=== PATIENT | female | born 1965 | race African-American/Black ===

== ENCOUNTER 2019-05-28 11:30 | Inpatient (IN) | payer OTHER ==
[2019-05-28 12:44] VITALS: BMI 21.1
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
[2019-05-28] MEDS ORDERED: MENTHOL/PHENOL 1 EACH UD MM PRN (13:40)
[2019-05-28] MEDS ORDERED: IBUPROFEN 400 MG TABLET (FP) PO PRN (13:40)
[2019-05-28] MEDS ORDERED: guaiFENesin 200 MG/10 ML 10 ML UNIT-DOSE CUPS PO PRN (13:40)
[2019-05-28] MEDS ORDERED: MAGNESIUM HYDROX 2400MG/30ML ORAL SUSPENSION 30 ML CUP PO PRN (13:40)
[2019-05-28] MEDS ORDERED: P-EPHED 60MG/TRIPROLIDI 2.5MG TABLET PO PRN (13:40)
[2019-05-28] MEDS ORDERED: LOPERAMIDE HCL 2 MG CAPSULE PO PRN (13:40)
[2019-05-28] MEDS ORDERED: NICOTINE POLACRILEX 2 MG GUM BUC PRN (13:40)
[2019-05-28] MEDS ORDERED: MAGNESIUM CITRATE 300 ML BOTTLE PO PRN (13:40)
[2019-05-28] MEDS ORDERED: ACETAMINOPHEN 325 MG TABLET (FP) PO PRN (13:40)
[2019-05-28] MEDS ORDERED: MAG HYDROX/AL HYDROX/SIMETH 30 ML UNIT-DOSE CUP PO PRN (13:40)
--- NOTE | 2019-05-28 13:51 | PN ---
Teaching Attending Note Name of Resident: Francoise Baron ATTENDING PHYSICIAN STATEMENT I saw and evaluated the patient. I reviewed the resident's note and discussed the case with the resident. I agree with the resident's findings and plan as documented. SUBJECTIVE: Agree with resident's subjective findings OBJECTIVE: Agree with resident's objective findings. ASSESSMENT AND PLAN: Agree with admission for rehabilitation. Dr. Hillman
[2019-05-28] MEDS ORDERED: ALBUTEROL SO4 8 GM HFA INHALER IH PRN (14:06)
[2019-05-28] MEDS ORDERED: FLUCONAZOLE 150 MG TABLET PO ONE (15:00)
[2019-05-28] MEDS ORDERED: PT OWN MED DRAWER 7, Y5N ONE (15:08)
[2019-05-28] MEDS ORDERED: NICOTINE 21 MG/24 HOURS TOPICAL PATCH TD SCH (15:45)
[2019-05-28] MEDS ORDERED: ASPIRIN COATED 81 MG TABLET.EC PO SCH (16:30)
[2019-05-28 16:31] LABS: HEMATOCRIT 37.1 % (32.4-45.2); HEMOGLOBIN 11.9 GM/dL (10.7-15.3); MCH 27.9 pg (25.7-33.7); MEAN PLT VOLUME 10.3 fl (7.5-11.1); PLATELET COUNT 183 K/MM3 (134-434); RBC 4.27 M/mm3 (3.60-5.2)
[2019-05-28 16:37] LABS: ALBUMIN 2.6 g/dl (3.4-5.0); BILIRUBIN,TOTAL 0.2 mg/dL (0.2-1); BLOOD UREA NITROGEN 14.5 mg/dL (7-18); CREATININE 0.7 mg/dL (0.55-1.3); POTASSIUM 3.6 mmol/L (3.5-5.1); TOT PROT 9.3 g/dl (6.4-8.2)
[2019-05-28 16:43] LABS: WHITE BLOOD COUNT 1.8 K/mm3 (4.0-10.0)
[2019-05-28] MEDS: ACYCLOVIR 400 MG TABLET PO SCH ×2 (17:25→21:57)
--- NOTE | 2019-05-28 17:50 | PN ---
[facility] Progress Note Note: Patient w/ hx HIV+ and low WBC's for many years. CBC WBC 1.8 K/mm3 (4.0-10.0) L* 05/28/19 14:25 RBC 4.27 M/mm3 (3.60-5.2) 05/28/19 14:25 Hgb 11.9 GM/dL (10.7-15.3) 05/28/19 14:25 Hct 37.1 % (32.4-45.2) 05/28/19 14:25 MCV 87.0 fl (80-96) 05/28/19 14:25 MCH 27.9 pg (25.7-33.7) 05/28/19 14:25 MCHC 32.0 g/dl (32.0-36.0) 05/28/19 14:25 RDW 15.0 % (11.6-15.6) 05/28/19 14:25 Plt Count 183 K/MM3 (134-434) D 05/28/19 14:25 MPV 10.3 fl (7.5-11.1) 05/28/19 14:25 Patient is non-compliant w/ HIV meds > 1 month. Patient encouraged to f/u w/ HCP , upon discharge, to evaluate appropriate medication management.
[2019-05-28] MEDS ORDERED: THIAMINE HCL 100 MG TABLET (FP) PO SCH (22:00)
[2019-05-28] MEDS ORDERED: MELATONIN 5 MG TABLETS PO PRN (22:00)
--- NOTE | 2019-05-29 06:10 | DS ---
[facility] Rehab Discharge Summary - [facility] Rehab Discharge Summary Admission Date: 05/28/19 Discharge Date: 05/29/19 - History Present History: Alcohol dependence, Cocaine dependence, Opioid dependence Additional Comments: Patient admitted for rehab, after [address] [facility] detox w/ hx alcohol, heroin and cocaine use disorder. Pertinent Past History: PMHx: HIV+ ; Depression Pt came in from [facility] where received detox and psych evaluation. . Last HIV medication use 1 month ago - Discharge Physical Exam Vital Signs: Vital Signs Temperature 100.0 F H 05/28/19 13:45 Pulse Rate 75 05/28/19 14:37 Respiratory Rate 16 05/29/19 00:30 Blood Pressure 98/75 05/28/19 14:37 O2 Sat by Pulse Oximetry (%) Pertinent Admission Physical Exam Findings: Patient w/ early alcohol, heroin and cocaine remission. Laboratory Last Values WBC 1.8 K/mm3 (4.0-10.0) L* 05/28/19 14:25 RBC 4.27 M/mm3 (3.60-5.2) 05/28/19 14:25 Hgb 11.9 GM/dL (10.7-15.3) 05/28/19 14:25 Hct 37.1 % (32.4-45.2) 05/28/19 14:25 MCV 87.0 fl (80-96) 05/28/19 14:25 MCH 27.9 pg (25.7-33.7) 05/28/19 14:25 MCHC 32.0 g/dl (32.0-36.0) 05/28/19 14:25 RDW 15.0 % (11.6-15.6) 05/28/19 14:25 Plt Count 183 K/MM3 (134-434) D 05/28/19 14:25 MPV 10.3 fl (7.5-11.1) 05/28/19 14:25 Sodium 138 mmol/L (136-145) 05/28/19 14:25 Potassium 3.6 mmol/L (3.5-5.1) 05/28/19 14:25 Chloride 107 mmol/L (98-107) 05/28/19 14:25 Carbon Dioxide 25 mmol/L (21-32) 05/28/19 14:25 Anion Gap 6 MMOL/L (8-16) L 05/28/19 14:25 BUN 14.5 mg/dL (7-18) 05/28/19 14:25 Creatinine 0.7 mg/dL (0.55-1.3) 05/28/19 14:25 Est GFR (CKD-EPI)AfAm 114.65 05/28/19 14:25 Est GFR (CKD-EPI)NonAf 98.92 05/28/19 14:25 Random Glucose 92 mg/dL (74-106) 05/28/19 14:25 Calcium 9.0 mg/dL (8.5-10.1) 05/28/19 14:25 Total Bilirubin 0.2 mg/dL (0.2-1) 05/28/19 14:25 AST 87 U/L (15-37) H 05/28/19 14:25 ALT 64 U/L (13-61) H 05/28/19 14:25 Alkaline Phosphatase 67 U/L (45-117) 05/28/19 14:25 Total Protein 9.3 g/dl (6.4-8.2) H 05/28/19 14:25 Albumin 2.6 g/dl (3.4-5.0) L 05/28/19 14:25 Labs reviewed and discussed w/ patient. Patient w/ a history of leukopenia dating back to 2013. - Treatment Discharge Condition: Discharge condition good - Medication Discharge Medications: Ambulatory Orders Albuterol Sulfate Inhaler - [Ventolin HFA Inhaler -] 2 puff IH Q4H PRN #1 inhaler 05/01/15 Aspirin [ASA -] 81 mg PO DAILY 05/28/19 Bictegrav/Emtricit/Tenofov Ala [Biktarvy 50-200-25 mg Tablet] 1 each PO DAILY Cetirizine HCl [Zyrtec -] 10 mg PO DAILY 05/28/19 Divalproex *ER* [Depakote *ER* -] 500 mg PO DAILY 05/28/19 Docusate Sodium [Colace -] 100 mg PO DAILY 05/28/19 Fluconazole [Diflucan] 150 mg PO ONCE 05/28/19 Fluticasone Propionate [Flovent Diskus] 50 mcg IH DAILY 05/28/19 Halobetasol Prop 0.05% Tp Crm [Ultravate (Nf)] 1 applic TP DAILY 05/28/19 Multivitamins [Tab-A-Vit -] 1 tab PO DAILY 05/28/19 Ranitidine HCl 150 mg PO DAILY 05/28/19 Sulfamethoxazole/Trimethoprim [Bactrim Ds -] 1 tab PO DAILY 05/28/19 Valacyclovir HCl [Valtrex] 1,000 mg PO DAILY 05/28/19 - Medication-Assisted Treatment (MAT) Medication-Assisted Treatment (MAT): No - Discharge Instructions Diet, activity, other medical instructions: Diet: Regular Activity: Ad chong Other medical instructions: Patient encouraged to f/u w/ HCP. Discussed and given copy of lab work. Smoking cessation encouraged. Patient declined nicotine patch or gum. - Diagnosis (1) Alcohol use disorder, moderate, in early remission Status: Acute (2) Heroin use disorder, moderate, in early remission Status: Acute (3) Cocaine use disorder, moderate, in early remission Status: Acute (4) Leukopenia Status: Chronic Qualifiers: Leukopenia type: unspecified Qualified Code(s): D72.819 - Decreased white blood cell count, unspecified (5) HIV (human immunodeficiency virus infection) Status: Chronic Qualifiers: HIV symptom status: unspecified Qualified Code(s): B20 - Human immunodeficiency virus [HIV] disease (6) Nicotine dependence Status: Chronic Qualifiers: Nicotine product type: cigarettes Substance use status: uncomplicated Qualified Code(s): F17.210 - Nicotine dependence, cigarettes, uncomplicated - Follow-up Referral Minutes to complete discharge: 20 - AMA Did Patient Leave Against Medical Advice: Yes
--- NOTE | 2019-05-29 06:16 | PN ---
[facility] Progress Note Note: Patient insisting on leaving despite encouragement to stay. Alert and oriented. Gait steady. Vital Signs - 24 hr 05/28/19 05/28/19 05/28/19 12:12 13:45 14:37 Temperature 100.0 F H 100.0 F H Pulse Rate 77 77 75 Respiratory 18 18 Rate Blood Pressure 86/56 L 86/56 L 98/75 05/29/19 05/29/19 05/29/19 00:30 03:30 06:15 Temperature 98.0 F Pulse Rate 74 Respiratory 16 16 18 Rate Blood Pressure 93/57 L Given copy of labs and encouraged f/u w/ PCP.
[2019-05-29 07:04] VITALS: BP 93/57; PULSE 74; TEMP 98
[2019-05-29] MEDS ORDERED: ASPIRIN 81 MG CHEWABLE TABLETS PO SCH (10:00)
[2019-05-29] MEDS ORDERED: PATIENT'S OWN MEDICATION (NON-FORMULARY) (Ranitidine Hcl [Ranitidine Hcl] 150 MG) PO SCH (10:00)
[2019-05-29] MEDS ORDERED: MULTIVITAMINS (DAILY MVI) TABLET (FP) PO SCH (10:00)
[2019-05-29] MEDS ORDERED: LORATADINE 10 MG TABLET PO SCH (10:00)
[2019-05-29] MEDS ORDERED: SULFAMETHOXAZOLE/TRIMETHOPRIM 800MG/160MG D.S. TABLET PO SCH (10:00)
[2019-05-29] MEDS ORDERED: PATIENT'S OWN MEDICATION (NON-FORMULARY) (Fluticasone Propionate [Flovent Diskus] 50 MCG) IH SCH (10:00)
[2019-05-29] MEDS ORDERED: PRENATAL VITAMINS W/ FOLIC ACID TABLET (FP) PO SCH (10:00)
[2019-05-29] MEDS ORDERED: DOCUSATE SODIUM 100 MG CAPSULE (FP) PO SCH (10:00)
== END 2019-05-29 06:25 | disposition left against medical advice (07) | DRG 770 ==
LOC: YASAS 11:30 → Y3E 14:37
PROVIDERS: ADMIT Neuromusculoskeletal Medicine & OMM; ATTEND Neuromusculoskeletal Medicine & OMM
PROC: HZ2ZZZZ Detoxification Services for Substance Abuse Treatment (ICD-10-PCS; principal; 2019-05-28)
DX: F10.20 Alcohol dependence, uncomplicated (principal); F11.20 Opioid dependence, uncomplicated; F14.20 Cocaine dependence, uncomplicated; F17.210 Nicotine dependence, cigarettes, uncomplicated; F31.9 Bipolar disorder, unspecified; Z21 Asymptomatic human immunodeficiency virus [HIV] infection status; D72.819 Decreased white blood cell count, unspecified; I69.898 Other sequelae of other cerebrovascular disease; H53.8 Other visual disturbances; Z86.19 Personal history of other infectious and parasitic diseases; Z85.41 Personal history of malignant neoplasm of cervix uteri
CPT/HCPCS: 36415; 80053; 85027; 86593

== ENCOUNTER 2019-07-23 17:13 | Inpatient (IN) | payer OTHER ==
[2019-07-23 20:09] VITALS: BMI 21.7
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
[2019-07-24] MEDS ORDERED: MENTHOL/PHENOL 1 EACH UD MM PRN (00:02)
[2019-07-24] MEDS ORDERED: guaiFENesin 200 MG/10 ML 10 ML UNIT-DOSE CUPS PO PRN (00:02)
[2019-07-24] MEDS ORDERED: LOPERAMIDE HCL 2 MG CAPSULE PO PRN (00:02)
[2019-07-24] MEDS ORDERED: P-EPHED 60MG/TRIPROLIDI 2.5MG TABLET PO PRN (00:02)
[2019-07-24] MEDS ORDERED: MAG HYDROX/AL HYDROX/SIMETH 30 ML UNIT-DOSE CUP PO PRN (00:02)
[2019-07-24] MEDS ORDERED: MAGNESIUM HYDROX 2400MG/30ML ORAL SUSPENSION 30 ML CUP PO PRN (00:02)
[2019-07-24] MEDS ORDERED: MAGNESIUM CITRATE 300 ML BOTTLE PO PRN (00:02)
[2019-07-24] MEDS ORDERED: NICOTINE POLACRILEX 2 MG GUM BC PRN (00:02)
[2019-07-24] MEDS ORDERED: IBUPROFEN 400 MG TABLET (FP) PO PRN (00:02)
[2019-07-24] MEDS ORDERED: ALBUTEROL SO4 8 GM HFA INHALER IH PRN (00:03)
[2019-07-24] MEDS ORDERED: PT OWN MED DRAWER 7, Y5N ONE (09:18)
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
[2019-07-24] MEDS ORDERED: PATIENT'S OWN MEDICATION (NON-FORMULARY) (Fluticasone Propionate [Flovent Diskus] 50 MCG) IH SCH ×3 (10:00→11:28)
[2019-07-24] MEDS ORDERED: PATIENT'S OWN MEDICATION (NON-FORMULARY) (Halobetasol Prop 0.05% Tp Crm 1 APPLIC) TP SCH ×3 (10:00→11:29)
[2019-07-24] MEDS: ACYCLOVIR 400 MG TABLET PO SCH (10:05)
[2019-07-24] MEDS: PRENATAL VITAMINS W/ FOLIC ACID TABLET (FP) PO SCH (10:06)
[2019-07-24] MEDS: NICOTINE 21 MG/24 HOURS TOPICAL PATCH TD SCH (10:07)
[2019-07-24] MEDS: ASPIRIN 81 MG CHEWABLE TABLETS PO SCH (10:07)
[2019-07-24 11:57] LABS: HEMATOCRIT 38.5 % (32.4-45.2); HEMOGLOBIN 12.5 GM/dL (10.7-15.3); MCH 28.2 pg (25.7-33.7); MCHC 32.5 g/dl (32.0-36.0); MEAN CELL VOLUME 86.7 fl (80-96); MEAN PLT VOLUME 9.8 fl (7.5-11.1); PLATELET COUNT 230 K/MM3 (134-434); RBC 4.44 M/mm3 (3.60-5.2); RDW 14.6 % (11.6-15.6); WHITE BLOOD COUNT 3.6 K/mm3 (4.0-10.0)
[2019-07-24 12:01] LABS: ALBUMIN 2.9 g/dl (3.4-5.0); ALK PHOS 69 U/L (45-117); ANION GAP 5 MMOL/L (8-16); BILIRUBIN,TOTAL < 0.1 mg/dL (0.2-1); BLOOD UREA NITROGEN 18.3 mg/dL (7-18); CALCIUM 9.6 mg/dL (8.5-10.1); CHLORIDE 105 mmol/L (98-107); CO2 27 mmol/L (21-32); CREATININE 0.8 mg/dL (0.55-1.3); GLUCOSE,RANDOM 64 mg/dL (74-106); SGOT/AST 50 U/L (15-37); SGPT/ALT 48 U/L (13-61); SODIUM 136 mmol/L (136-145); TOT PROT 9.9 g/dl (6.4-8.2)
[2019-07-24] MEDS: ACETAMINOPHEN 325 MG TABLET (FP) PO PRN (13:24)
[2019-07-24] MEDS ORDERED: LIDOCAINE VISCOUS 2% ORAL/TOP 20 ML UNIT-DOSE CUP MM PRN (13:40)
--- NOTE | 2019-07-24 14:49 | EKG ---
Test Reason : Blood Pressure : / mmHG Vent. Rate : 058 BPM Atrial Rate : 058 BPM P-R Int : 200 ms QRS Dur : 088 ms QT Int : 408 ms P-R-T Axes : -01 030 047 degrees QTc Int : 400 ms SINUS BRADYCARDIA MODERATE VOLTAGE CRITERIA FOR LVH, MAY BE NORMAL VARIANT BORDERLINE ECG NO PREVIOUS ECGS AVAILABLE Confirmed by Adrián Mancia ([id number]) on 07/24/2019 2:49:32 PM Referred By: VISHNU BEAR NP Confirmed By:Adrián Mancia
--- NOTE | 2019-07-24 15:24 | PN ---
S Progress Note Note: Pt is a 53 y/o female with a hx of SONIA-alcohol,heroin,cocaine admitted to rehab from [facility]. Pt reports she has a primary care doctor who she sees every [address] Rao at [facility]. Pt has a hx of Asthma, HIV+, Herpes and CVA x2. Psych Hx of Bipolar disorder and Schizoaffective disorder. Vital Signs - 24 hr 07/23/19 07/23/19 07/24/19 20:05 22:49 02:05 Temperature 98.5 F 98.5 F 98.7 F Pulse Rate 81 81 66 Respiratory 16 16 16 Rate Blood Pressure 107/76 107/76 92/65 07/24/19 07:11 Temperature 98.5 F Pulse Rate 68 Respiratory 16 Rate Blood Pressure 113/78 Laboratory Tests 07/24/19 07/24/19 08:10 08:10 WBC 3.6 L RBC 4.44 Hgb 12.5 Hct 38.5 MCV 86.7 MCH 28.2 MCHC 32.5 RDW 14.6 Plt Count 230 D MPV 9.8 Sodium 136 Potassium 4.0 Chloride 105 Carbon Dioxide 27 Anion Gap 5 L BUN 18.3 H Creatinine 0.8 Est GFR (CKD-EPI)AfAm 97.55 Est GFR (CKD-EPI)NonAf 84.17 Random Glucose 64 L Calcium 9.6 Total Bilirubin < 0.1 L AST 50 H ALT 48 Alkaline Phosphatase 69 Total Protein 9.9 H Albumin 2.9 L Labs noted Alert o x 3 nad oob ambulating with steady gait Oral: mouth sore A/P new rehab pt Maintain safety Viscous Lidocaine swish and spit as directed. Asmanex 1 puff BID Betamethasone dipropionate lotionapply as directed.
[2019-07-24] MEDS: MOMETASONE FUROATE 110 MCG/IH INHALER IH SCH (21:48)
[2019-07-24] MEDS ORDERED: THIAMINE HCL 100 MG TABLET (FP) PO SCH (22:00)
[2019-07-24] MEDS ORDERED: MELATONIN 5 MG TABLETS PO PRN (22:00)
[2019-07-24] MEDS: BETAMETHASONE DIP 0.05% TP LOTION 30 ML BOTTLE TP SCH (22:30)
[2019-07-25] MEDS ORDERED: PT OWN MED DRAWER 7, Y5N ONE ×2 (06:41→08:44)
[2019-07-25] MEDS: ACETAMINOPHEN 325 MG TABLET (FP) PO PRN (06:43)
[2019-07-25] MEDS: ASPIRIN 81 MG CHEWABLE TABLETS PO SCH (10:02)
[2019-07-25] MEDS: PRENATAL VITAMINS W/ FOLIC ACID TABLET (FP) PO SCH (10:02)
[2019-07-25] MEDS: ACYCLOVIR 400 MG TABLET PO SCH (10:03)
[2019-07-25] MEDS: MOMETASONE FUROATE 110 MCG/IH INHALER IH SCH (10:03)
[2019-07-25] MEDS: BETAMETHASONE DIP 0.05% TP LOTION 30 ML BOTTLE TP SCH (10:04)
[2019-07-25] MEDS: NICOTINE 21 MG/24 HOURS TOPICAL PATCH TD SCH (10:05)
--- NOTE | 2019-07-25 11:59 | PN ---
S Progress Note Note: pt c/o white patch on the tongue. Reports she takes Diflucan and last too it 3 months ago from her doctor. Vital Signs - 24 hr 07/25/19 07:23 Temperature 98.6 F Pulse Rate 73 Respiratory 18 Rate Blood Pressure 95/60 Oral:whitish coat on tongue, increased salivation,sores at corner of both sides of mouth. A/P Oral Thrush Diflucan 100 mg po daily
[2019-07-25] MEDS ORDERED: FLUCONAZOLE 100 MG TABLET (UD) PO SCH (12:00)
[2019-07-25 16:17] VITALS: BP 102/62; PULSE 63; TEMP 98
--- NOTE | 2019-07-25 16:28 | DS ---
[facility] Rehab Discharge Summary - [facility] Rehab Discharge Summary Admission Date: 07/24/19 Discharge Date: 07/25/19 - History Present History: Alcohol dependence, Cocaine dependence, Opioid dependence - Discharge Physical Exam Vital Signs: Vital Signs Temperature 98 F 07/25/19 16:17 Pulse Rate 63 07/25/19 16:17 Respiratory Rate 16 07/25/19 16:17 Blood Pressure 102/62 07/25/19 16:17 O2 Sat by Pulse Oximetry (%) Pertinent Admission Physical Exam Findings: Early remission of alcohol use. Hx cocaine and nicotine use disorder. Hx: HIV+; Asthma; HS Laboratory Last Values WBC 3.6 K/mm3 (4.0-10.0) L 07/24/19 08:10 RBC 4.44 M/mm3 (3.60-5.2) 07/24/19 08:10 Hgb 12.5 GM/dL (10.7-15.3) 07/24/19 08:10 Hct 38.5 % (32.4-45.2) 07/24/19 08:10 MCV 86.7 fl (80-96) 07/24/19 08:10 MCH 28.2 pg (25.7-33.7) 07/24/19 08:10 MCHC 32.5 g/dl (32.0-36.0) 07/24/19 08:10 RDW 14.6 % (11.6-15.6) 07/24/19 08:10 Plt Count 230 K/MM3 (134-434) D 07/24/19 08:10 MPV 9.8 fl (7.5-11.1) 07/24/19 08:10 Sodium 136 mmol/L (136-145) 07/24/19 08:10 Potassium 4.0 mmol/L (3.5-5.1) 07/24/19 08:10 Chloride 105 mmol/L (98-107) 07/24/19 08:10 Carbon Dioxide 27 mmol/L (21-32) 07/24/19 08:10 Anion Gap 5 MMOL/L (8-16) L 07/24/19 08:10 BUN 18.3 mg/dL (7-18) H 07/24/19 08:10 Creatinine 0.8 mg/dL (0.55-1.3) 07/24/19 08:10 Est GFR (CKD-EPI)AfAm 97.55 07/24/19 08:10 Est GFR (CKD-EPI)NonAf 84.17 07/24/19 08:10 Random Glucose 64 mg/dL (74-106) L 07/24/19 08:10 Calcium 9.6 mg/dL (8.5-10.1) 07/24/19 08:10 Total Bilirubin < 0.1 mg/dL (0.2-1) L 07/24/19 08:10 AST 50 U/L (15-37) H 07/24/19 08:10 ALT 48 U/L (13-61) 07/24/19 08:10 Alkaline Phosphatase 69 U/L (45-117) 07/24/19 08:10 Total Protein 9.9 g/dl (6.4-8.2) H 07/24/19 08:10 Albumin 2.9 g/dl (3.4-5.0) L 07/24/19 08:10 RPR Titer Nonreactive (NONREACTIVE) 07/24/19 08:10 Labs reviewed. - Treatment Discharge Condition: Discharge condition good (Alert and oriented w/ steady gait. Left w/o communication w/ HCP.) - Medication Discharge Medications: Ambulatory Orders Albuterol Sulfate Inhaler - [Ventolin HFA Inhaler -] 2 puff IH Q4H PRN #1 inhaler 05/01/15 Aspirin [ASA -] 81 mg PO DAILY 05/28/19 Cetirizine HCl [Zyrtec -] 10 mg PO DAILY 05/28/19 Docusate Sodium [Colace -] 100 mg PO DAILY 05/28/19 Fluconazole [Diflucan] 150 mg PO ONCE 05/28/19 Fluticasone Propionate [Flovent Diskus] 50 mcg IH DAILY 05/28/19 Halobetasol Prop 0.05% Tp Crm [Ultravate (Nf)] 1 applic TP DAILY 05/28/19 Multivitamins [Tab-A-Vit -] 1 tab PO DAILY 05/28/19 Acyclovir [Zovirax -] 800 mg PO DAILY 07/23/19 - Medication-Assisted Treatment (MAT) Medication-Assisted Treatment (MAT): No - Discharge Instructions Diet, activity, other medical instructions: Diet: Activity: Other medical instructions: - Diagnosis (1) Alcohol use disorder, moderate, in early remission Status: Acute (2) Cocaine use disorder, moderate, in early remission Status: Acute (3) Heroin use disorder, moderate, in early remission Status: Acute (4) Asthma Status: Chronic Qualifiers: Asthma severity: mild intermittent Asthma complication type: uncomplicated (5) HIV (human immunodeficiency virus infection) Status: Chronic Qualifiers: HIV symptom status: unspecified Qualified Code(s): B20 - Human immunodeficiency virus [HIV] disease (6) Nicotine dependence Status: Chronic Qualifiers: Nicotine product type: cigarettes Substance use status: uncomplicated Qualified Code(s): F17.210 - Nicotine dependence, cigarettes, uncomplicated (7) 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
[2019-07-25] MEDS ORDERED: DOCUSATE SODIUM 100 MG CAPSULE (FP) PO SCH (22:00)
== END 2019-07-25 16:15 | disposition left against medical advice (07) | DRG 770 ==
LOC: YASAS 17:13 → Y3E 07-24 00:45
PROVIDERS: ADMIT Neuromusculoskeletal Medicine & OMM; ATTEND Allergy & Immunology
PROC: HZ2ZZZZ Detoxification Services for Substance Abuse Treatment (ICD-10-PCS; principal; 2019-07-24)
DX: F10.20 Alcohol dependence, uncomplicated (principal); F11.20 Opioid dependence, uncomplicated; F17.210 Nicotine dependence, cigarettes, uncomplicated; F20.0 Paranoid schizophrenia; F25.9 Schizoaffective disorder, unspecified; B20 Human immunodeficiency virus [HIV] disease; F31.9 Bipolar disorder, unspecified; B37.0 Candidal stomatitis; J45.20 Mild intermittent asthma, uncomplicated; A60.04 Herpesviral vulvovaginitis; Z86.19 Personal history of other infectious and parasitic diseases; Z86.73 Personal history of transient ischemic attack (TIA), and cerebral infarction without residual deficits; Z91.5 Personal history of self-harm
CPT/HCPCS: 36415; 80053; 85027; 86593; 93005; 93010

== ENCOUNTER 2020-04-12 10:37 | Inpatient (IN) | payer OTHER ==
--- OUTSIDE RECORDS SUMMARY | 2020-04-12 10:40 | XMS ---
:1965 Author Organization [facility] Support Name Relationship Address Phone UE Unavailable Unavailable Unavailable ANNIKA MARIE FRIEND [address] [place] [address] MELITA MABRY SELF / SAME PATIENT [phone] [place] [address] Re-disclosure Warning The records that you are about to access may contain information from federally- assisted alcohol or drug abuse programs. If such information is present, then the following federally mandated warning applies: This information has been disclosed to you from records protected by federal confidentiality rules (42 CFR part 2). The federal rules prohibit you from making any further disclosure of this information unless further disclosure is expressly permitted by the written consent of the person to whom it pertains or as otherwise permitted by 42 CFR part 2. A general authorization for the release of medical or other information is NOT sufficient for this purpose. The Federal rules restrict any use of the information to criminally investigate or prosecute any alcohol or drug abuse patient.The records that you are about to access may contain highly sensitive health information, the redisclosure of which is protected by Article 27-F of the [facility] Public Health law. If you continue you may haveaccess to information: Regarding HIV / AIDS; Provided by facilities licensed or operated by the [facility] Office of Mental Health; or Provided by the [facility] Office for People With Developmental Disabilities. If such information is present, then the following [facility] mandated warning applies: This information has been disclosed to you from confidential records which are protected by state law. State law prohibits you from making any further disclosure of this information without the specific written consent of the person to whom it pertains, or as otherwise permitted by law. Any unauthorized further disclosure in violation of state law may result in a fine or snf sentence or both. A general authorization for the release of medical or other information is NOT sufficient authorization for further disclosure. Insurance Providers Payer name Policy type Policy ID Covered Covered democrat's Policy P aletha / Coverage democrat ID relationship to Melvin Inf ormation type melvin JUANCARLOS [id number] STU [id number] OLLIE
--- NOTE | 2020-04-12 13:32 | BHS.RME ---
Substance Use & Tx History - Substance Use History Alcohol Substance amount: 4 pints of wine,3 pints of benny,4 of 40 ozs of beer Frequency of use: Daily Date of Last Use: 04/12/20 Cocaine-Crack Substance amount: 100$ Frequency of use: Daily Substance route: Smoking Date of Last Use: 04/12/20 - Last Treatment Date of last treatment: [facility] 07/24/19 to 07/25/19 Where was last treatment: Rehab Physical/Psych/Mental Status - Behavior Eye Contact: Normal - Cooperativeness Cooperativeness: Cooperative - Thinking Thought Processes: Logical Thought content: Future oriented - Physical Health Problems Is patient presently having any pain?: No Does patient presently have any injuries (include location): No Does patient currently have a fever: No CIWA Nausea/Vomitin Muscle Tremors: 3 Anxiety: 3 Agitation: 3 Paroxysmal Sweats: No Perspiration Orientation: 0-Oriented Tacttile Disturbances: 1-Very Mild Itch/Numbness Auditory Disturbances: 0-None Visual Disturbances: 0-None Headache: 2-Mild CIWA-Ar Total Score: 14
--- NOTE | 2020-04-12 13:43 | HP ---
CIWA Score Nausea/Vomitin Muscle Tremors: 3 Anxiety: 3 Agitation: 3 Paroxysmal Sweats: No Perspiration Orientation: 0-Oriented Tacttile Disturbances: 1-Very Mild Itch/Numbness Auditory Disturbances: 0-None Visual Disturbances: 0-None Headache: 2-Mild CIWA-Ar Total Score: 14 - Admission Criteria OASAS Guidelines: Admission for Medically Managed Detox: Requires at least one of the followin. CIWA greater than 12 2. Seizures within the past 24 hours 3. Delirium tremens within the past 24 hours 4. Hallucinations within the past 24 hours 5. Acute intervention needed for co occurring medical disorder 6. Acute intervention needed for co occurring psychiatric disorder 7. Severe withdrawal that cannot be handled at a lower level of care (continued vomiting, continued diarrhea, abnormal vital signs) requiring intravenous medication and/or fluids 8. Admitting History and Physical - Admission Chief Complaint: i need help to stop drinking alcohol,smoking crack, History of Present Illness: this 54 years old female with alcohol and crack dependence,need help to stop,mandated by court to come in for detox and rehab, stated seen by cloud operations engineer yesterday weight loss hiv non compliance with medication last rehab 07/24/19 to 07/25/19 no significant period of sobriety hiv since 1988 plan for rehab after detox history of non compliance in the past,patient will be contracted History Source: Patient Limitations to Obtaining History: No Limitations - Past Medical History Pulmonary: Yes: Asthma ...LMP: 01/27/15 ...: No Infectious Disease: Yes: HIV Psych: Yes: Anxiety, Depression, Other (insomnia) - Smoking History Smoking history: Current every day smoker Have you smoked in the past 12 months: Yes Aproximately how many cigarettes per day: 20 - Alcohol/Substance Use Hx Alcohol Use: Yes History of Substance Use: reports: Cocaine - Social History Usual Living Arrangement: Yes: Other (shlter) Do you think of yourself as: Straight/Heterosexual ADL: Support Services 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 mandated to come in for detox and rehab Admission ROS BHS - HPI Chief Complaint: i need help to stop drinking alcohol and using crack Allergies/Adverse Reactions: Allergies Allergy/AdvReac Type Severity Reaction Status Date / Time No Known Allergies Allergy Verified 04/12/20 14:18 History of Present Illness: this 54 years old female with alcohol dependence and crack dependence,seeking detox history of non compliance last rehab [facility] 07/24/19 07/25/[address] come in for detox and [place]hab [place],unemployed weight loss anxiety,depression no significant period of sobriety Exam Limitations: No Limitations - Ebola screening Have you traveled outside of the country in the last 21 days: No Have you had contact with anyone from an Ebola affected area: No Have you been sick,other than usual withdrawal symptoms: No Do you have a fever: No - Review of Systems Constitutional: Loss of Appetite, Malaise, Night Sweats, Changes in sleep, Weakness, Unintentional Wgt. Loss EENT: reports: Nose Congestion Respiratory: reports: Other (asthma) Cardiac: reports: No Symptoms Reported GI: reports: Nausea, Poor Appetite, Abdominal cramping : reports: No Symptoms Reported Musculoskeletal: reports: Back Pain, Muscle Pain Integumentary: reports: Dryness Neuro: reports: Tremors Endocrine: reports: No Symptoms Reported Hematology: reports: Anemia, Other (hiv) Psychiatric: reports: No Sypmtoms Reported, Judgement Intact, Mood/Affect Appropiate, Anxious, Depressed Other Systems: Reviewed and Negative Patient History - Patient Medical History Hx Anemia: No Hx Asthma: Yes Hx Chronic Obstructive Pulmonary Disease (COPD): No Hx Cancer: Yes (cervical 20 years ago) Hx Cardiac Disorders: No Hx Congestive Heart Failure: No Hx Hypertension: No Hx Hypercholesterolemia: No Hx Pacemaker: No HX Cerebrovascular Accident: Yes (2 times, 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) Hx Seizures: No Hx Dementia: Yes (gives hx of memory problems , HIV pos.) Hx Diabetes: No Hx Gastrointestinal Disorders: No Hx Liver Disease: No Hx Genitourinary Disorders: No Hx Sexually Transmitted Disorders: No (genital herpes in the past) Hx Renal Disease (ESRD): No Hx Thyroid Disease: No Hx Human Immunodeficiency Virus (HIV): Yes (non compliance with mad) Hx Hepatitis C: No Hx Depression: No Hx Suicide Attempt: No Hx Bipolar Disorder: Yes Hx Schizophrenia: No Other Medical History: no suiicidal,no homicida - Patient Surgical History Past Surgical History: Yes Hx Neurologic Surgery: No Hx Cataract Extraction: No Hx Cardiac Surgery: No Hx Lung Surgery: No Hx Breast Surgery: No Hx Breast Biopsy: No Hx Abdominal Surgery: No Hx Appendectomy: No Hx Cholecystectomy: No Hx Genitourinary Surgery: No Hx Section: No Hx Orthopedic Surgery: No Hx Hysterectomy: No Other Surgical History: perirectal abscess 10/29 Anesthesia Reaction: No - PPD History Previous Implant?: Yes Date: 05/30/19 Results: 0 mm PPD to be Administered?: No - Reproductive History Patient is a Female of Child Bearing Age (11 -55 yrs old): Yes Last Menstrual Period: 01/27/15 Patient : No - Smoking Cessation Smoking history: Current every day smoker Have you smoked in the past 12 months: Yes Aproximately how many cigarettes per day: 20 Cigars Per Day: 0 Hx Chewing Tobacco Use: No Initiated information on smoking cessation: Yes 'Breaking Loose' booklet given: 04/12/20 - Substance & Tx. History Hx Alcohol Use: Yes Hx Substance Use: Yes Substance Use Type: Alcohol, Cocaine Hx Substance Use Treatment: Yes ([facility] 07/24/19 to 07/25/19 not completed) - Substances abused Alcohol Substance route: Oral Frequency: Daily Amount used: 3pints of benny,4pints of wine,3 of 40 ozs of beer Age of first use: 13 Date of last use: 04/12/20 Crack Substance route: Smoking Frequency: Daily Amount used: 100$ Age of first use: 22 Date of last use: 04/12/20 Admission Physical Exam BHS - Vital Signs Vital Signs: bp 127/88,p73,r18,t97,nuvia 0.00,pulse ox 98% - Physical General Appearance: Yes: Tremorous, Irritable, Sweating, Anxious HEENTM: Yes: Normal ENT Inspection, CAM, Other (orophalangeal candidiasis) Neck: Yes: Within Normal Limits, Supple, Trachea in good position Breast: Yes: Breast Exam Deferred Cardiology: Yes: Within Normal Limits, Regular Rhythm, Regular Rate, S1, S2 Abdominal: Yes: Within Normal Limits, Normal Bowel Sounds, Non Tender, Flat, Soft Genitourinary: Yes: Within Normal Limits Back: Yes: Muscle Spasm Musculoskeletal: Yes: Muscle Pain, Muscle weakness Extremities: Yes: Tremors Neurological: Yes: lan/wan engineer II-XII NML intact, Fully Oriented, Alert, Motor Strength 5/5 Integumentary: Yes: Dry Lymphatic: Yes: Within Normal Limits - Diagnostic (1) Alcohol dependence with uncomplicated withdrawal Current Visit: No Status: Chronic (2) Cocaine dependence Current Visit: No Status: Acute (3) HIV (human immunodeficiency virus infection) Current Visit: No Status: Chronic Qualifiers: HIV symptom status: unspecified Qualified Code(s): B20 - Human immunodeficiency virus [HIV] disease (4) Nicotine dependence Current Visit: No Status: Chronic Qualifiers: Nicotine product type: cigarettes Substance use status: uncomplicated Qualified Code(s): F17.210 - Nicotine dependence, cigarettes, uncomplicated (5) Schizoaffective disorder Current Visit: No Status: Chronic (6) Asthma Current Visit: Yes Status: Acute (7) Weight loss Current Visit: Yes Status: Acute (8) Oropharyngeal candidiasis Current Visit: Yes Status: Acute Cleared for Admission BHS - Detox or Rehab S Level of Care: Medically Managed Detox Regimen/Protocol: Librium Breathalyzer - Breathalyzer Breathalyzer: 0 POC Urine test - Control test control: No Urine Drug Screen - Test Device Lot number: [id number] Expiration date: 04/16/21 - Control Is test valid?: Yes - Results Drug screen NEGATIVE: Yes Urine drug screen results: SONG-Cocaine, BZO-Benzodiazepines Inpatient Rehab Admission - Rehab Decision to Admit Inpatient rehab admission?: No
[2020-04-12] MEDS ORDERED: chlordiazePOXIDE HCL 25 MG CAPSULE PO PRN (14:11)
[2020-04-12] MEDS ORDERED: NICOTINE POLACRILEX 2 MG GUM BUC PRN (14:11)
[2020-04-12] MEDS ORDERED: MAGNESIUM CITRATE 300 ML BOTTLE PO PRN (14:11)
[2020-04-12] MEDS ORDERED: MAGNESIUM HYDROX 2400MG/30ML ORAL SUSPENSION 30 ML CUP PO PRN (14:11)
[2020-04-12] MEDS ORDERED: MAG HYDROX/AL HYDROX/SIMETH 30 ML UNIT-DOSE CUP PO PRN (14:11)
[2020-04-12] MEDS ORDERED: METHOCARBAMOL 500 MG TABLET PO PRN (14:11)
[2020-04-12] MEDS ORDERED: BISMUTH SUBSALICYLATE 524 MG/30 ML UD PO PRN (14:11)
[2020-04-12] MEDS ORDERED: IBUPROFEN 400 MG TABLET (FP) PO PRN (14:11)
[2020-04-12] MEDS ORDERED: ACETAMINOPHEN 325 MG TABLET (FP) PO PRN ×2 (14:11)
[2020-04-12] MEDS ORDERED: ONDANSETRON *ODT* 4 MG TABLET SL PRN (14:11)
[2020-04-12] MEDS ORDERED: MENTHOL/PHENOL 1 EACH UD MM PRN (14:11)
--- OUTSIDE RECORDS SUMMARY | 2020-04-12 14:19 | XMS ---
:1965 Author Organization [facility] Support Name Relationship Address Phone UE Unavailable Unavailable Unavailable ANNIKA MARIE FRIEND [address] [place] [address] MELITA MABRY SELF / SAME PATIENT [phone] [place] [address] Re-disclosure Warning The records that you are [...] is protected by Article 27-F of the [facility] Public Health law. If you continue you may haveaccess to information: Regarding HIV / AIDS; Provided by facilities licensed or operated by the [facility] Office of Mental Health; or Provided by the [facility] Office for People With Developmental Disabilities. If such information is present, then the following [facility] mandated warning applies: This information has [...] law may result in a fine or correction sentence or both. A general authorization for the release of medical or other information is NOT sufficient authorization for further disclosure. Insurance Providers Payer name Policy type Policy ID Covered Covered constitution party's Policy P aletha / Coverage constitution party ID relationship to Melvin Inf ormation type melvin JUANCARLOS [id number] STU [id number] OLILE
[2020-04-12 14:41] VITALS: BMI 18.4
[2020-04-12] MEDS ORDERED: ALBUTEROL SO4 HFA INHALER IH PRN (15:24)
[2020-04-12] MEDS: chlordiazePOXIDE HCL 25 MG CAPSULE PO SCH ×2 (17:39→23:10)
[2020-04-12] MEDS: hydrOXYzine PAMOATE 25 MG CAPSULE (FP) PO SCH ×2 (17:39→23:10)
[2020-04-12] MEDS: CLOTRIMAZOLE 10 MG TROCHE PO SCH ×2 (18:30→23:10)
[2020-04-12] MEDS: valACYclovir HCL 500 MG TABLET (FP) PO SCH (23:10)
[2020-04-12] MEDS: MELATONIN 5 MG TABLETS PO SCH (23:10)
[2020-04-12] MEDS: THIAMINE HCL 100 MG TABLET (FP) PO SCH (23:10)
[2020-04-13] MEDS: hydrOXYzine PAMOATE 25 MG CAPSULE (FP) PO SCH ×5 (07:11→22:14)
[2020-04-13] MEDS: chlordiazePOXIDE HCL 25 MG CAPSULE PO SCH ×4 (07:11→22:14)
[2020-04-13] MEDS: CLOTRIMAZOLE 10 MG TROCHE PO SCH ×5 (07:11→22:14)
[2020-04-13] MEDS ORDERED: chlordiazePOXIDE HCL 25 MG CAPSULE PO PRN (09:31)
--- NOTE | 2020-04-13 09:34 | PN ---
S CIWA - CIWA Score Nausea/Vomitin-Mild Nausea/No Vomiting Muscle Tremors: 2 Anxiety: 3 Agitation: 1-Slight > Activity Paroxysmal Sweats: No Perspiration Orientation: 0-Oriented Tacttile Disturbances: 0-None Auditory Disturbances: 0-None Visual Disturbances: 2-Mild Sensitivity Headache: 2-Mild CIWA-Ar Total Score: 11 S Progress Note (SOAP) Subjective: 54 years old female was admitted on 04/12/20 for alcohol withdrawal sx management treating with librium detox regiment requests ensure bmi 18.4 continue ensure supplement ms alberto requests to swallow librium whole change open to close librium as per physician instruction Objective: 04/13/20 09:34 Vital Signs - 24 hr 04/12/20 04/12/20 04/12/20 14:40 16:55 20:35 Temperature 97.0 F L 97.5 F L 96.9 F L Pulse Rate 104 H 73 59 L Respiratory 18 18 20 Rate Blood Pressure 127/88 105/71 104/53 L O2 Sat by Pulse 100 Oximetry (%) 04/13/20 07:05 Temperature 97.1 F L Pulse Rate 88 Respiratory 19 Rate Blood Pressure 101/72 O2 Sat by Pulse 98 Oximetry (%) 04/13/20 09:34 lab pending Assessment: 04/13/20 09:34 alcohol withdrawal under weight Plan: librium regiment
[2020-04-13] MEDS: FLUCONAZOLE 150 MG TABLET PO SCH (10:55)
[2020-04-13] MEDS: PRENATAL VITAMINS W/ FOLIC ACID TABLET (FP) PO SCH (10:55)
[2020-04-13] MEDS: ASPIRIN 81 MG CHEWABLE TABLETS PO SCH (10:55)
[2020-04-13] MEDS: valACYclovir HCL 500 MG TABLET (FP) PO SCH ×2 (10:55→22:14)
[2020-04-13] MEDS: NICOTINE 21 MG/24 HOURS TOPICAL PATCH TD SCH (10:56)
[2020-04-13 12:00] LABS: HEMATOCRIT 35.7 % (32.4-45.2); HEMOGLOBIN 11.4 GM/dL (10.7-15.3); MCH 27.3 pg (25.7-33.7); MEAN CELL VOLUME 85.1 fl (80-96); MEAN PLT VOLUME 9.7 fl (7.5-11.1); PLATELET COUNT 161 K/MM3 (134-434); RBC 4.19 M/mm3 (3.60-5.2); RDW 14.9 % (11.6-15.6); WHITE BLOOD COUNT 3.7 K/mm3 (4.0-10.0)
[2020-04-13 12:20] LABS: POTASSIUM 3.7 mmol/L (3.5-5.1)
[2020-04-13 12:28] LABS: ALBUMIN 2.3 g/dl (3.4-5.0); BILIRUBIN,TOTAL 0.5 mg/dL (0.2-1); BLOOD UREA NITROGEN 11.8 mg/dL (7-18); CALCIUM 8.4 mg/dL (8.5-10.1); CREATININE 0.6 mg/dL (0.55-1.3)
--- NOTE | 2020-04-13 14:01 | CONSULT ---
[facility] Psychiatric Consult - Data Date of interview: 04/13/20 Admission source: [facility] Identifying data: Supervisor Inventory Merchandising approached patient for psychiatric consultation. Patient stated to journalists and other writers, " Nope i don't need to see you. I don't need to see psych." Psychiatric consultation refused.
[2020-04-13] MEDS: THIAMINE HCL 100 MG TABLET (FP) PO SCH (22:14)
[2020-04-13] MEDS: MELATONIN 5 MG TABLETS PO SCH (22:14)
[2020-04-14] MEDS ORDERED: chlordiazePOXIDE HCL 25 MG CAPSULE PO SCH (05:00)
[2020-04-14] MEDS: chlordiazePOXIDE HCL 25 MG CAPSULE PO SCH ×4 (06:37→23:20)
[2020-04-14] MEDS: CLOTRIMAZOLE 10 MG TROCHE PO SCH ×5 (06:37→23:19)
[2020-04-14] MEDS: hydrOXYzine PAMOATE 25 MG CAPSULE (FP) PO SCH ×5 (06:37→23:20)
[2020-04-14] MEDS: PRENATAL VITAMINS W/ FOLIC ACID TABLET (FP) PO SCH (10:21)
[2020-04-14] MEDS: valACYclovir HCL 500 MG TABLET (FP) PO SCH ×2 (10:21→23:20)
[2020-04-14] MEDS: NICOTINE 21 MG/24 HOURS TOPICAL PATCH TD SCH (10:21)
[2020-04-14] MEDS: FLUCONAZOLE 150 MG TABLET PO SCH (10:21)
[2020-04-14] MEDS: ASPIRIN 81 MG CHEWABLE TABLETS PO SCH (10:21)
--- NOTE | 2020-04-14 15:12 | PN ---
S CIWA - CIWA Score Nausea/Vomitin-Mild Nausea/No Vomiting Muscle Tremors: 2 Anxiety: 2 Agitation: 0-Normal Activity Paroxysmal Sweats: No Perspiration Orientation: 0-Oriented Tacttile Disturbances: 0-None Auditory Disturbances: 0-None Visual Disturbances: 2-Mild Sensitivity Headache: 1-Very Mild CIWA-Ar Total Score: 8 S Progress Note (SOAP) Subjective: 54 years old female was admitted on 04/12/20 for alcohol withdrawal sx management treating with librium detox regiment feels better less tremor mild anxiety ate breakfast and lunch in room tolerated ensure well social with peers in day room discussing aftercare with staff Objective: 04/14/20 15:13 Vital Signs - 24 hr 04/13/20 04/13/20 04/14/20 16:58 20:59 09:10 Temperature 97.7 F 98.7 F 97.3 F L Pulse Rate 66 96 H 86 Respiratory 18 18 17 Rate Blood Pressure 108/68 101/69 101/68 O2 Sat by Pulse 99 95 Oximetry (%) 04/14/20 13:31 Temperature 98.2 F Pulse Rate 76 Respiratory 18 Rate Blood Pressure 105/70 O2 Sat by Pulse 98 Oximetry (%) Laboratory Tests 04/12/20 04/13/20 04/13/20 14:45 07:30 07:30 WBC 3.7 L RBC 4.19 Hgb 11.4 Hct 35.7 MCV 85.1 MCH 27.3 MCHC 32.0 RDW 14.9 Plt Count 161 D MPV 9.7 Sodium Potassium Chloride Carbon Dioxide Anion Gap BUN Creatinine Est GFR (CKD-EPI)AfAm Est GFR (CKD-EPI)NonAf Random Glucose Calcium Total Bilirubin AST ALT Alkaline Phosphatase Total Protein Albumin POC Urine HCG, Qual Negative Syphilis Serology Non-reactive 04/13/20 07:30 WBC RBC Hgb Hct MCV MCH MCHC RDW Plt Count MPV Sodium 139 Potassium 3.7 Chloride 109 H Carbon Dioxide 24 Anion Gap 7 L BUN 11.8 Creatinine 0.6 Est GFR (CKD-EPI)AfAm 119.77 Est GFR (CKD-EPI)NonAf 103.34 Random Glucose 79 Calcium 8.4 L Total Bilirubin 0.5 AST 79 H ALT 63 H Alkaline Phosphatase 70 Total Protein 9.0 H Albumin 2.3 L POC Urine HCG, Qual Syphilis Serology lab noted Assessment: 04/14/20 15:14 alcohol withdrawal Plan: librium regiment
[2020-04-14] MEDS: MELATONIN 5 MG TABLETS PO SCH (23:19)
[2020-04-14] MEDS: THIAMINE HCL 100 MG TABLET (FP) PO SCH (23:20)
[2020-04-15] MEDS ORDERED: chlordiazePOXIDE HCL 10 MG CAPSULE PO PRN ×2
[2020-04-15] MEDS ORDERED: chlordiazePOXIDE HCL 10 MG CAPSULE PO SCH (05:00)
[2020-04-15] MEDS: chlordiazePOXIDE HCL 10 MG CAPSULE PO SCH ×4 (06:07→22:49)
[2020-04-15] MEDS: hydrOXYzine PAMOATE 25 MG CAPSULE (FP) PO SCH ×5 (06:07→22:48)
[2020-04-15] MEDS: CLOTRIMAZOLE 10 MG TROCHE PO SCH ×5 (06:07→22:48)
--- NOTE | 2020-04-15 10:51 | PN ---
S CIWA - CIWA Score Nausea/Vomitin-Mild Nausea/No Vomiting Muscle Tremors: 2 Anxiety: 2 Agitation: 2 Paroxysmal Sweats: No Perspiration Orientation: 0-Oriented Tacttile Disturbances: 0-None Auditory Disturbances: 0-None Visual Disturbances: 0-None Headache: 1-Very Mild CIWA-Ar Total Score: 8 BHS Progress Note (SOAP) Subjective: alert,irritable,anxious,interrupted sleep Objective: 04/15/20 17:43 Vital Signs Temperature 98.1 F 04/15/20 16:38 Pulse Rate 90 04/15/20 16:38 Respiratory Rate 18 04/15/20 16:38 Blood Pressure 109/74 04/15/20 16:38 O2 Sat by Pulse Oximetry (%) 96 04/15/20 13:13 Assessment: 04/15/20 17:44 withdrawal symptom Plan: continue detox librium regimen,fluid
[2020-04-15] MEDS: FLUCONAZOLE 150 MG TABLET PO SCH (10:55)
[2020-04-15] MEDS: ASPIRIN 81 MG CHEWABLE TABLETS PO SCH (10:55)
[2020-04-15] MEDS: valACYclovir HCL 500 MG TABLET (FP) PO SCH ×2 (10:56→22:48)
[2020-04-15] MEDS: PRENATAL VITAMINS W/ FOLIC ACID TABLET (FP) PO SCH (10:56)
[2020-04-15] MEDS: NICOTINE 21 MG/24 HOURS TOPICAL PATCH TD SCH (11:02)
[2020-04-15] MEDS: THIAMINE HCL 100 MG TABLET (FP) PO SCH (22:48)
[2020-04-15] MEDS: MELATONIN 5 MG TABLETS PO SCH (22:48)
[2020-04-16] MEDS ORDERED: chlordiazePOXIDE HCL 10 MG CAPSULE PO SCH (05:00)
[2020-04-16] MEDS: hydrOXYzine PAMOATE 25 MG CAPSULE (FP) PO SCH (06:38)
[2020-04-16] MEDS: CLOTRIMAZOLE 10 MG TROCHE PO SCH ×4 (06:38→19:36)
[2020-04-16] MEDS: chlordiazePOXIDE HCL 10 MG CAPSULE PO SCH ×3 (06:38→19:35)
--- NOTE | 2020-04-16 06:57 | PN ---
[facility] Progress Note Note: INFORMED BY NURSING CLIENT HAD A WITNESS FALL BY STAFF A HOUR AGO. STAFF REPORTS CLIENT FELL ON HER BOTTOCKS WHILE AMBULATING IN THE HALLWAY. CLIENT REPORT GENERALIZED WEAKNESS AND TROUBLE MOVING ARMS AND LEGS 2/2 WEAKNESS. SHE ALSO REPORTS THAT SHE USES A WALKER BUT DOES NOT HAVE IT WITH HER. DENIES HITTING HERE HEAD, PAIN. DIZZINESS, VISUAL DISTURBANCES. Vital Signs 04/16/20 04/16/20 05:44 07:44 Temperature 97.2 F L 97.6 F Pulse Rate 61 90 Respiratory 16 18 Rate Blood Pressure 107/79 99/76 O2 Sat by Pulse 97 97 Oximetry (%) 04/16/20 04/16/20 08:12 09:15 Temperature 97.7 F 97.5 F L Pulse Rate 91 H 92 H Respiratory 20 16 Rate Blood Pressure 94/73 89/55 L O2 Sat by Pulse 97 Oximetry (%) CLIENT SEEN SEATED AT BEDSIDE A/O X3, ANXIOUS AND DISHEVELED, WITH CLOTHING SOILED WITH FOOD HEAD- NCAT SKIN- INTACT, NO BRUISING OR INJURY NOTED EXTREMITIES/ BACK- AROM WITH C/O WEAKNESS S/P WITNESS FALL P- FALL PROTOCOL 2 PLEASE PROVIDE CLIENT WITH WC TO ASSIST WITH AMBULATION CONT TO MONITOR CLINICALLY
[2020-04-16] MEDS ORDERED: hydrOXYzine PAMOATE 25 MG CAPSULE (FP) PO PRN (09:09)
--- NOTE | 2020-04-16 09:32 | PN ---
[facility] Progress Note Note: unwitnessed fall denied head injury alert,oriented x 3 had a fall earlier patient refused treatment before but changed her mind place on 1:1 for patient"s safety refused to stay on a wheelchair for ambulation able to ambulated b 94/73 p91 r20 t97.7 impression unwitnessed fall hiv cachexia oropharyngeal candidiasis alcohol dependence treatment initiate fall protocol1 to er for evaluation 1:1 for patient's safety endorsed to Dr. Mabel sheldon
[2020-04-16] MEDS: FLUCONAZOLE 150 MG TABLET PO SCH (10:57)
[2020-04-16] MEDS: ASPIRIN 81 MG CHEWABLE TABLETS PO SCH (10:57)
[2020-04-16] MEDS: NICOTINE 21 MG/24 HOURS TOPICAL PATCH TD SCH (10:59)
[2020-04-16] MEDS: PRENATAL VITAMINS W/ FOLIC ACID TABLET (FP) PO SCH (10:59)
[2020-04-16] MEDS: valACYclovir HCL 500 MG TABLET (FP) PO SCH (11:00)
--- NOTE | 2020-04-16 15:15 | PN ---
[facility] Progress Note Note: patient returned from [facility] feel weak on 1:1 for safety alert,oriented x 3 Vital Signs Temperature 98.0 F 04/16/20 14:12 Pulse Rate 86 04/16/20 14:12 Respiratory Rate 16 04/16/20 14:12 Blood Pressure 96/72 04/16/20 14:12 O2 Sat by Pulse Oximetry (%) 97 04/16/20 14:12 patient did not want to complete treatment,all attempts to convince patient to stay with no avail signed release against medical advice the risks of leaving the hospital explained,including seizure,permanent disability,including ,patient understood, seen by counselor,patient will see her medical provider for follow up
--- NOTE | 2020-04-16 17:11 | DS ---
[facility] Detox Discharge Summary Admission Date: 04/12/20 Discharge Date: 04/16/20 - History Present History: Alcohol Dependence Pertinent Past History: Ms Castillo admitted for alcohol detox- pt had several episodes of falling which she said was related to straining due to constipation. Pt sent to [facility] earlier today and sent back after a negative evaluation. Pt is scheduled to go home tomorrow but wants to leave today (says she lied at admission and is not court mandated to detox and rehab). Pt states will go to [facility]. Pt states his phone is turned off b/c of running out of minutes on cell phone. Pt is alert and oriented. Is able to walk around this unit without assistance. Pt states she has all meds and requested a stool softener and advair- which she did not have a kolby. Pt has a PCP- Dr. Deras at [facility]. Vital Signs - 24 hr 04/15/20 04/16/20 04/16/20 20:46 00:30 05:44 Temperature 98.2 F 97.3 F L 97.2 F L Pulse Rate 88 86 61 Respiratory 18 16 16 Rate Blood Pressure 101/67 90/66 107/79 O2 Sat by Pulse 97 96 97 Oximetry (%) 04/16/20 04/16/20 04/16/20 06:46 07:44 08:12 Temperature 97.6 F 97.7 F Pulse Rate 90 91 H Respiratory 18 20 Rate Blood Pressure 99/76 94/73 O2 Sat by Pulse 97 97 Oximetry (%) 04/16/20 04/16/20 04/16/20 09:15 12:30 12:33 Temperature 97.5 F L 97.3 F L 97.3 F L Pulse Rate 92 H 86 80 Respiratory 16 16 16 Rate Blood Pressure 89/55 L 90/66 90/66 O2 Sat by Pulse 97 96 Oximetry (%) 04/16/20 14:12 Temperature 98.0 F Pulse Rate 86 Respiratory 16 Rate Blood Pressure 96/72 O2 Sat by Pulse 97 Oximetry (%) Laboratory Tests 04/12/20 04/12/20 04/13/20 14:32 14:45 07:30 WBC RBC Hgb Hct MCV MCH MCHC RDW Plt Count MPV Sodium Potassium Chloride Carbon Dioxide Anion Gap BUN Creatinine Est GFR (CKD-EPI)AfAm Est GFR (CKD-EPI)NonAf Random Glucose Calcium Total Bilirubin AST ALT Alkaline Phosphatase Total Protein Albumin POC Urine HCG, Qual Negative Syphilis Serology Non-reactive COVID-19 ([place]) Not detected 04/13/20 04/13/20 07:30 07:30 WBC 3.7 L RBC 4.19 Hgb 11.4 Hct 35.7 MCV 85.1 MCH 27.3 MCHC 32.0 RDW 14.9 Plt Count 161 D MPV 9.7 Sodium 139 Potassium 3.7 Chloride 109 H Carbon Dioxide 24 Anion Gap 7 L BUN 11.8 Creatinine 0.6 Est GFR (CKD-EPI)AfAm 119.77 Est GFR (CKD-EPI)NonAf 103.34 Random Glucose 79 Calcium 8.4 L Total Bilirubin 0.5 AST 79 H ALT 63 H Alkaline Phosphatase 70 Total Protein 9.0 H Albumin 2.3 L POC Urine HCG, Qual Syphilis Serology COVID-19 ([place]) - Physical Exam Results Vital Signs: Vital Signs Temperature 98.0 F 04/16/20 14:12 Pulse Rate 86 04/16/20 14:12 Respiratory Rate 16 04/16/20 14:12 Blood Pressure 96/72 04/16/20 14:12 O2 Sat by Pulse Oximetry (%) 97 04/16/20 14:12 - Treatment Hospital Course: Detox Protocol Followed, Detoxed Safely, Responded well, Discharged Condition Good - Medication Discharge Medications: Ambulatory Orders Albuterol Sulfate Inhaler - [Ventolin HFA Inhaler -] 2 puff IH Q4H PRN #1 inhaler 05/01/15 Aspirin [ASA -] 81 mg PO DAILY 05/28/19 Docusate Sodium [Colace -] 100 mg PO DAILY 05/28/19 Fluconazole [Diflucan] 150 mg PO DAILY 05/28/19 Multivitamins [Tab-A-Vit -] 1 tab PO DAILY 05/28/19 Acyclovir [Zovirax -] 800 mg PO DAILY 07/23/19 Emtricitab/Rilpiviri/Tenof Ala [Odefsey Tablet] 1 each PO DAILY 04/12/20 Salmeterol/Fluticasone [Advair 100Mcg/50Mcg -] 1 inh PO BID #1 diskus 04/16/20 Sennosides [Senna Lax] 8.6 mg PO DAILY PRN 30 Days #30 tablet 04/16/20 Valacyclovir HCl [Valtrex -] 500 mg PO BID tablet 04/16/20 - Diagnosis (1) Asthma Current Visit: Yes Status: Acute (2) Alcohol use disorder, moderate, in early remission Current Visit: No Status: Acute (3) Heroin use disorder, moderate, in early remission Current Visit: No Status: Acute (4) HIV (human immunodeficiency virus infection) Current Visit: No Status: Chronic Qualifiers: HIV symptom status: unspecified Qualified Code(s): B20 - Human immunodeficiency virus [HIV] disease - AMA Did Patient Leave Against Medical Advice: No
[2020-04-16 17:53] VITALS: TEMP 97.1
[2020-04-16 18:31] VITALS: BP 103/80; PULSE 94
[2020-04-17] MEDS ORDERED: chlordiazePOXIDE HCL 10 MG CAPSULE PO ONE ×2 (05:00)
== END 2020-04-16 18:35 | disposition home or self-care (01) | DRG 773 ==
LOC: YASAS 10:37 → Y3N 14:16
PROVIDERS: ADMIT Allergy & Immunology; ATTEND Allergy & Immunology
PROC: HZ2ZZZZ Detoxification Services for Substance Abuse Treatment (ICD-10-PCS; principal; 2020-04-12)
DX: F10.230 Alcohol dependence with withdrawal, uncomplicated (principal); F11.23 Opioid dependence with withdrawal; F14.20 Cocaine dependence, uncomplicated; F17.210 Nicotine dependence, cigarettes, uncomplicated; F31.9 Bipolar disorder, unspecified; F41.9 Anxiety disorder, unspecified; F25.9 Schizoaffective disorder, unspecified; B20 Human immunodeficiency virus [HIV] disease; B37.0 Candidal stomatitis; J45.909 Unspecified asthma, uncomplicated; R29.6 Repeated falls; R63.4 Abnormal weight loss; Z68.1 Body mass index [BMI] 19.9 or less, adult; Z59.0 Homelessness
CPT/HCPCS: 36415; 80053; 81025; 85027; 86780; U0003

== ENCOUNTER 2020-04-16 10:08 | Emergency (ER) | payer OTHER ==
[2020-04-16 10:18] VITALS: BP 94/66; PULSE 90; TEMP 98.8; BMI 19.0
--- NOTE | 2020-04-16 10:54 | PDOC ---
Documentation entered by Donita Cantu SCRIBE, acting as scribe for Argelia Samuel MD. Argelia Samuel MD: This documentation has been prepared by the Alondra hinojosa Xhesika, SCRIBE, under my direction and personally reviewed by me in its entirety. I confirm that the documentation accurately reflects all work, treatment, procedures, and medical decision making performed by me. History of Present Illness - General Chief Complaint: Injury Stated Complaint: FALL Time Seen by Provider: 04/16/20 10:13 History Source: Patient Exam Limitations: No Limitations - History of Present Illness Initial Comments: 04/16/20 10:16 54y/o F with a PMH of hiv, oropharyngeal candidiasis and alcohol dependence who presents to the ED BIB[facility] from [facility] s/p unwitnessed fall. Pt states her legs felt weak so she fell and hit her hip. Pt denies hitting her head. Pt denies LOC. Pt. reports she has had many falls like this in the past when her legs just feel weak and in the past has fallen and required sutures. Pt does not have any complaints in the ED. The patient denies chest pain, shortness of breath, headache and dizziness. Denies fever, chills, cough, nausea, vomiting, diarrhea and constipation. Allergies: NKDA Past History - Medical History Allergies/Adverse Reactions: Allergies Allergy/AdvReac Type Severity Reaction Status Date / Time No Known Allergies Allergy Verified 04/16/20 10:10 Home Medications: Ambulatory Orders Albuterol Sulfate Inhaler - [Ventolin HFA Inhaler -] 2 puff IH Q4H PRN #1 inhaler 05/01/15 Aspirin [ASA -] 81 mg PO DAILY 05/28/19 Docusate Sodium [Colace -] 100 mg PO DAILY 05/28/19 Fluconazole [Diflucan] 150 mg PO DAILY 05/28/19 Multivitamins [Tab-A-Vit -] 1 tab PO DAILY 05/28/19 Acyclovir [Zovirax -] 800 mg PO DAILY 07/23/19 Emtricitab/Rilpiviri/Tenof Ala [Odefsey Tablet] 1 each PO DAILY 04/12/20 Anemia: No Asthma: Yes Cancer: Yes (cervical 20 years ago) Cardiac Disorders: No CVA: Yes (2 times, 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) COPD: No CHF: No Dementia: Yes (gives hx of memory problems , HIV pos.) Diabetes: No GI Disorders: No Disorders: No HTN: No Hypercholesterolemia: No Kidney Stones: No Liver Disease: No Seizures: No Thyroid Disease: No - Surgical History Abdominal Surgery: No Appendectomy: No Cardiac Surgery: No Cholecystectomy: No Lung Surgery: No Neurologic Surgery: No Orthopedic Surgery: No - Reproductive History PID: No - Psycho-Social/Smoking History Smoking History: Current every day smoker Have you smoked in the past 12 months: Yes Number of Cigarettes Smoked Daily: 20 Cigars Per Day: 0 'Breaking Loose' booklet given: 04/12/20 Review of Systems - Review of Systems Able to Perform ROS?: Yes Comments:: 04/16/20 10:17 GENERAL/CONSTITUTIONAL: No fever or chills. No weakness. HEAD, EYES, EARS, NOSE AND THROAT: No change in vision. No ear pain or discharge. No sore throat. CARDIOVASCULAR: No chest pain or shortness of breath. RESPIRATORY: No cough, wheezing, or hemoptysis. GASTROINTESTINAL: No nausea, vomiting, diarrhea or constipation. GENITOURINARY: No dysuria, frequency, or change in urination. MUSCULOSKELETAL: No joint or muscle swelling or pain. No neck or back pain. SKIN: No rash NEUROLOGIC: No headache, vertigo, loss of consciousness, or change in strength/sensation. ENDOCRINE: No increased thirst. No abnormal weight change. HEMATOLOGIC/LYMPHATIC: No anemia, easy bleeding, or history of blood clots. ALLERGIC/IMMUNOLOGIC: No hives or skin allergy. *Physical Exam - Physical Exam 04/16/20 10:45 GENERAL: Well appearing, in no acute distress HEENT: NCAT, MMM, EOMI NECK: Normal ROM, supple LUNGS: CTAB. Good air entry. HEART: RRR, + s1 s2 ABDOMEN: Soft, nontender, normoactive bowel sounds. No guarding, no rebound. No masses BACK: no midline or paraspinal tenderness. No CVA tenderness. EXTREMITIES: Warm and well perfused. No LE edema. FROM. No clubbing or cyanosis. No cords, erythema, or tenderness NEUROLOGICAL: Aox3, Speech fluent, face symmetric. Sensation grossly intact to light touch. Ambulatory with steady gait. Strength intact. No focal deficits. SKIN: Warm, dry, normal turgor, no rashes or lesions noted. Medical Decision Making - Medical Decision Making 04/16/20 10:52 54 yo F h/o falls p/w fall from standing today, no complaints and no evidence of trauma on exam, pt at baseline MS, no indication for additional workup at this time. Triage vitals noted, as per [facility], patient BP typically runs on the lower side and is currently at baseline. Plan: -d/c back to [facility] with return precautions, recommend PMD f/u This clinical encounter is taking place during a federal and state health care emergency attributable to the novel Corey Virus pandemic. The [place] of the Department of Health and Human Services has declared, pursuant to the Public Health Service Act 319F-3 (42 U.S.C. 247d-6d), that a covered persons activities related to medical countermeasures against COVID-19 will be immune from liability under Federal and State law. Discharge - Discharge Information Problems reviewed: Yes Clinical Impression/Diagnosis: Fall Qualifiers: Encounter type: initial encounter Qualified Code(s): W19.XXXA - Unspecified fall, initial encounter Condition: Stable Disposition: HOME - Admission No - Follow up/Referral - Patient Discharge Instructions Patient Printed Discharge Instructions: How to Prevent Falls Additional Instructions: You should follow up with your PMD. Return to the ED for new or worsening symptoms. - Post Discharge Activity
== END 2020-04-16 12:25 | disposition home or self-care (01) ==
LOC: JER 10:08
DX: R53.1 Weakness (principal)
CPT/HCPCS: 99281-25

== ENCOUNTER 2020-07-06 10:10 | Inpatient (IN) | payer OTHER ==
[2020-07-06 12:28] VITALS: BMI 18.8
[2020-07-06] MEDS ORDERED: chlordiazePOXIDE HCL 25 MG CAPSULE PO PRN (12:32)
[2020-07-06] MEDS ORDERED: MAG HYDROX/AL HYDROX/SIMETH 30 ML UNIT-DOSE CUP PO PRN (12:32)
[2020-07-06] MEDS ORDERED: IBUPROFEN 400 MG TABLET (FP) PO PRN (12:32)
[2020-07-06] MEDS ORDERED: MAGNESIUM HYDROX 2400MG/30ML ORAL SUSPENSION 30 ML CUP PO PRN (12:32)
[2020-07-06] MEDS ORDERED: MAGNESIUM CITRATE 300 ML BOTTLE PO PRN (12:32)
[2020-07-06] MEDS ORDERED: ONDANSETRON *ODT* 4 MG TABLET SL PRN (12:32)
[2020-07-06] MEDS ORDERED: NICOTINE POLACRILEX 2 MG GUM BUC PRN (12:32)
[2020-07-06] MEDS ORDERED: METHOCARBAMOL 500 MG TABLET PO PRN (12:32)
[2020-07-06] MEDS ORDERED: BISMUTH SUBSALICYLATE 524 MG/30 ML UD PO PRN (12:32)
[2020-07-06] MEDS ORDERED: ACETAMINOPHEN 325 MG TABLET (FP) PO PRN ×2 (12:32)
[2020-07-06] MEDS ORDERED: MENTHOL/PHENOL 1 EACH UD MM PRN (12:32)
[2020-07-06] MEDS ORDERED: ALBUTEROL SO4 HFA INHALER IH PRN (13:29)
[2020-07-06] MEDS: hydrOXYzine PAMOATE 25 MG CAPSULE (FP) PO SCH ×3 (14:10→22:22)
[2020-07-06] MEDS: chlordiazePOXIDE HCL 25 MG CAPSULE PO SCH ×2 (18:02→22:22)
[2020-07-06] MEDS: THIAMINE HCL 100 MG TABLET (FP) PO SCH (22:20)
[2020-07-06] MEDS: MELATONIN 5 MG TABLETS PO SCH (22:21)
[2020-07-07] MEDS: hydrOXYzine PAMOATE 25 MG CAPSULE (FP) PO SCH ×5 (05:39→22:49)
[2020-07-07] MEDS: chlordiazePOXIDE HCL 25 MG CAPSULE PO SCH (05:39)
[2020-07-07] MEDS ORDERED: LORazepam 1 MG TABLET PO PRN (09:09)
[2020-07-07] MEDS ORDERED: risperiDONE 0.5 MG TABLET PO SCH (10:00)
[2020-07-07] MEDS: ACYCLOVIR 400 MG TABLET PO SCH (10:18)
[2020-07-07] MEDS: PRENATAL VITAMINS W/ FOLIC ACID TABLET (FP) PO SCH (10:18)
[2020-07-07] MEDS: FLUCONAZOLE 150 MG TABLET PO SCH (10:18)
[2020-07-07] MEDS: EMTRICITAB/RILPIVIRI/TENOF ALA (ODEFSEY) TABLET PO SCH (10:18)
[2020-07-07] MEDS: NICOTINE 21 MG/24 HOURS TOPICAL PATCH TD SCH (10:19)
[2020-07-07] MEDS: ASPIRIN 81 MG CHEWABLE TABLETS PO SCH (10:20)
[2020-07-07] MEDS ORDERED: LORazepam 2 MG TABLET PO SCH (11:00)
[2020-07-07 11:30] LABS: HEMATOCRIT 36.8 % (32.4-45.2); HEMOGLOBIN 11.9 GM/dL (10.7-15.3); MCH 27.2 pg (25.7-33.7); MCHC 32.2 g/dl (32.0-36.0); MEAN CELL VOLUME 84.4 fl (80-96); MEAN PLT VOLUME 9.9 fl (7.5-11.1); PLATELET COUNT 178 K/MM3 (134-434); RBC 4.36 M/mm3 (3.60-5.2); RDW 15.2 % (11.6-15.6); WHITE BLOOD COUNT 2.6 K/mm3 (4.0-10.0)
[2020-07-07 11:34] LABS: POTASSIUM 4.6 mmol/L (3.5-5.1)
[2020-07-07 11:41] LABS: ALBUMIN 2.6 g/dl (3.4-5.0); BLOOD UREA NITROGEN 25.2 mg/dL (7-18)
[2020-07-07 11:44] LABS: CREATININE 0.9 mg/dL (0.55-1.3)
[2020-07-07 11:45] LABS: BILIRUBIN,TOTAL 0.2 mg/dL (0.2-1)
[2020-07-07 11:46] LABS: TOT PROT 10.1 g/dl (6.4-8.2)
[2020-07-07] MEDS: LORazepam 2 MG TABLET PO SCH ×2 (17:55→22:49)
[2020-07-07] MEDS: MELATONIN 5 MG TABLETS PO SCH (22:48)
[2020-07-07] MEDS: THIAMINE HCL 100 MG TABLET (FP) PO SCH (22:49)
[2020-07-07] MEDS: risperiDONE 1 MG TABLET PO SCH (22:49)
[2020-07-08] MEDS ORDERED: chlordiazePOXIDE HCL 25 MG CAPSULE PO SCH (05:00)
[2020-07-08] MEDS: LORazepam 2 MG TABLET PO SCH ×4 (05:59→22:15)
[2020-07-08] MEDS: hydrOXYzine PAMOATE 25 MG CAPSULE (FP) PO SCH ×5 (05:59→22:15)
[2020-07-08] MEDS: PRENATAL VITAMINS W/ FOLIC ACID TABLET (FP) PO SCH (10:03)
[2020-07-08] MEDS ORDERED: MASKS NR ONE (10:03)
[2020-07-08] MEDS: ASPIRIN 81 MG CHEWABLE TABLETS PO SCH (10:03)
[2020-07-08] MEDS: FLUCONAZOLE 150 MG TABLET PO SCH (10:04)
[2020-07-08] MEDS: EMTRICITAB/RILPIVIRI/TENOF ALA (ODEFSEY) TABLET PO SCH (10:04)
[2020-07-08] MEDS: NICOTINE 21 MG/24 HOURS TOPICAL PATCH TD SCH (10:05)
[2020-07-08] MEDS: ACYCLOVIR 400 MG TABLET PO SCH (10:06)
[2020-07-08] MEDS ORDERED: COLLOIDAL OATMEAL 1 BAR EACH TP PRN (10:56)
[2020-07-08] MEDS ORDERED: FLU VACCINE (FLULAVAL) PF 60 MCG/0.5 ML SYRINGE 2020-2021 IM ONE (12:00)
[2020-07-08] MEDS: NYSTATIN 100000 UNIT/GM TOPICAL OINTMENT 15 GM TUBE TP SCH ×2 (12:13→22:15)
[2020-07-08] MEDS ORDERED: LIDOCAINE VISCOUS 2% ORAL/TOP 20 ML UNIT-DOSE CUP MM PRN (12:16)
[2020-07-08] MEDS: NYSTATIN 500,000 UNITS/5 ML SUSPENSION PO SCH ×2 (14:31→18:30)
[2020-07-08] MEDS: risperiDONE 1 MG TABLET PO SCH (22:15)
[2020-07-08] MEDS: MELATONIN 5 MG TABLETS PO SCH (22:15)
[2020-07-08] MEDS: THIAMINE HCL 100 MG TABLET (FP) PO SCH (22:15)
[2020-07-09] MEDS ORDERED: chlordiazePOXIDE HCL 10 MG CAPSULE PO PRN
[2020-07-09] MEDS: NYSTATIN 500,000 UNITS/5 ML SUSPENSION PO SCH ×2 (00:42→07:18)
[2020-07-09] MEDS ORDERED: chlordiazePOXIDE HCL 10 MG CAPSULE PO SCH (05:00)
[2020-07-09] MEDS: LORazepam 1 MG TABLET PO SCH ×2 (06:15→10:00)
[2020-07-09] MEDS: hydrOXYzine PAMOATE 25 MG CAPSULE (FP) PO SCH ×2 (06:17→10:00)
[2020-07-09 09:27] VITALS: BP 104/67; PULSE 89; TEMP 98.4
[2020-07-09] MEDS: ACYCLOVIR 400 MG TABLET PO SCH (09:58)
[2020-07-09] MEDS: PRENATAL VITAMINS W/ FOLIC ACID TABLET (FP) PO SCH (09:58)
[2020-07-09] MEDS: FLUCONAZOLE 150 MG TABLET PO SCH (09:59)
[2020-07-09] MEDS: NYSTATIN 100000 UNIT/GM TOPICAL OINTMENT 15 GM TUBE TP SCH (09:59)
[2020-07-09] MEDS: NICOTINE 21 MG/24 HOURS TOPICAL PATCH TD SCH (10:00)
[2020-07-09] MEDS: ASPIRIN 81 MG CHEWABLE TABLETS PO SCH (10:01)
[2020-07-09] MEDS: EMTRICITAB/RILPIVIRI/TENOF ALA (ODEFSEY) TABLET PO SCH (10:01)
[2020-07-10] MEDS ORDERED: LORazepam 0.5 MG TABLET PO PRN
[2020-07-10] MEDS ORDERED: chlordiazePOXIDE HCL 10 MG CAPSULE PO SCH (05:00)
[2020-07-10] MEDS ORDERED: LORazepam 0.5 MG TABLET PO SCH (05:00)
[2020-07-11] MEDS ORDERED: LORazepam 0.5 MG TABLET PO ONE (05:00)
[2020-07-11] MEDS ORDERED: chlordiazePOXIDE HCL 10 MG CAPSULE PO ONE (05:00)
== END 2020-07-09 10:10 | disposition left against medical advice (07) | DRG 770 ==
LOC: YASAS 10:10 → Y3N 13:01
PROVIDERS: ADMIT Allergy & Immunology; ATTEND Allergy & Immunology
PROC: HZ2ZZZZ Detoxification Services for Substance Abuse Treatment (ICD-10-PCS; principal; 2020-07-06)
DX: F10.230 Alcohol dependence with withdrawal, uncomplicated (principal); F14.10 Cocaine abuse, uncomplicated; F11.10 Opioid abuse, uncomplicated; F17.213 Nicotine dependence, cigarettes, with withdrawal; F19.24 Other psychoactive substance dependence with psychoactive substance-induced mood disorder; F25.9 Schizoaffective disorder, unspecified; F31.9 Bipolar disorder, unspecified; B20 Human immunodeficiency virus [HIV] disease; B37.0 Candidal stomatitis; J45.20 Mild intermittent asthma, uncomplicated; R63.4 Abnormal weight loss; R79.89 Other specified abnormal findings of blood chemistry; R25.1 Tremor, unspecified; D72.818 Other decreased white blood cell count; Z87.42 Personal history of other diseases of the female genital tract; Z56.0 Unemployment, unspecified
CPT/HCPCS: 36415; 80053; 81025; 84520; 85027; 86780; C9803; G0008; J2794; Q2036; U0003

== ENCOUNTER 2021-07-30 14:43 | Inpatient (IN) | payer OTHER ==
[2021-07-30] MEDS ORDERED: MENTHOL/PHENOL 1 EACH UD MM PRN (15:58)
[2021-07-30] MEDS ORDERED: MAGNESIUM HYDROX 2400MG/30ML ORAL SUSPENSION 30 ML CUP PO PRN (15:58)
[2021-07-30] MEDS ORDERED: METHOCARBAMOL 500 MG TABLET PO PRN (15:58)
[2021-07-30] MEDS ORDERED: MAG HYDROX/AL HYDROX/SIMETH 30 ML UNIT-DOSE CUP PO PRN (15:58)
[2021-07-30] MEDS ORDERED: IBUPROFEN 400 MG TABLET (FP) PO PRN (15:58)
[2021-07-30] MEDS ORDERED: NICOTINE 10 MG CARTRIDGE (INHALER) IH PRN (15:58)
[2021-07-30] MEDS ORDERED: MAGNESIUM CITRATE 300 ML BOTTLE PO PRN (15:58)
[2021-07-30] MEDS ORDERED: ACETAMINOPHEN 325 MG TABLET (FP) PO PRN ×2 (15:58)
[2021-07-30] MEDS ORDERED: ONDANSETRON *ODT* 4 MG TABLET SL PRN (15:58)
[2021-07-30] MEDS ORDERED: BISMUTH SUBSALICYLATE 524 MG/30 ML PO PRN (15:58)
[2021-07-30 21:14] VITALS: BMI 22.1
[2021-07-30] MEDS ORDERED: MELATONIN 5 MG TABLETS PO SCH (22:00)
[2021-07-30] MEDS ORDERED: THIAMINE HCL 100 MG TABLET (FP) PO SCH (22:00)
[2021-07-30] MEDS: hydrOXYzine PAMOATE 25 MG CAPSULE (FP) PO SCH ×2 (23:32→23:33)
[2021-07-31] MEDS: hydrOXYzine PAMOATE 25 MG CAPSULE (FP) PO SCH ×5 (06:02→18:53)
[2021-07-31] MEDS ORDERED: PRENATAL VITAMINS W/ FOLIC ACID TABLET (FP) PO SCH (10:00)
[2021-07-31 11:59] LABS: HEMATOCRIT 38.5 % (32.4-45.2); HEMOGLOBIN 12.3 GM/dL (10.7-15.3); MCH 27.6 pg (25.7-33.7); MCHC 31.9 g/dl (32.0-36.0); MEAN CELL VOLUME 86.5 fl (80-96); MEAN PLT VOLUME 9.9 fl (7.5-11.1); PLATELET COUNT 166 10^3/uL (134-434); RBC 4.45 M/mm3 (3.60-5.2); RDW 14.7 % (11.6-15.6)
[2021-07-31] MEDS ORDERED: FLU VACC QS2021-22(6MOS UP)/PF 60 MCG/0.5 ML SYRINGE IM ONE (12:00)
[2021-07-31 12:21] LABS: BILIRUBIN,TOTAL 0.2 mg/dL (0.2-1); BLOOD UREA NITROGEN 22.5 mg/dL (7-18); CREATININE 0.9 mg/dL (0.55-1.3)
[2021-07-31 12:22] LABS: ALBUMIN 2.6 g/dl (3.4-5.0)
[2021-07-31 12:24] LABS: CALCIUM 9.2 mg/dL (8.5-10.1)
[2021-07-31 18:30] VITALS: BP 119/68; PULSE 59; TEMP 98
== END 2021-07-31 17:30 | disposition other institution (70) | DRG 773 ==
LOC: YASAS 14:43 → Y6N 20:56
PROVIDERS: ADMIT Allergy & Immunology; ATTEND Allergy & Immunology
PROC: HZ2ZZZZ Detoxification Services for Substance Abuse Treatment (ICD-10-PCS; principal; 2021-07-30)
DX: F11.23 Opioid dependence with withdrawal (principal); F10.230 Alcohol dependence with withdrawal, uncomplicated; F14.20 Cocaine dependence, uncomplicated; F17.210 Nicotine dependence, cigarettes, uncomplicated; Z21 Asymptomatic human immunodeficiency virus [HIV] infection status; J45.909 Unspecified asthma, uncomplicated; Z86.19 Personal history of other infectious and parasitic diseases
CPT/HCPCS: 36415; 80053; 85027; 86780; 90686; C9803; G0008; U0003; U0005

== ENCOUNTER 2021-07-31 18:46 | Inpatient (IN) | payer OTHER ==
[2021-07-31] MEDS ORDERED: LOPERAMIDE HCL 2 MG CAPSULE PO PRN (19:14)
[2021-07-31] MEDS ORDERED: ACETAMINOPHEN 325 MG TABLET (FP) PO PRN (19:14)
[2021-07-31] MEDS ORDERED: guaiFENesin 200 MG/10 ML 10 ML UNIT-DOSE CUPS PO PRN (19:14)
[2021-07-31] MEDS ORDERED: MAG HYDROX/AL HYDROX/SIMETH 30 ML UNIT-DOSE CUP PO PRN (19:14)
[2021-07-31] MEDS ORDERED: NICOTINE 10 MG CARTRIDGE (INHALER) IH PRN (19:14)
[2021-07-31] MEDS ORDERED: MAGNESIUM CITRATE 300 ML BOTTLE PO PRN (19:14)
[2021-07-31] MEDS ORDERED: MAGNESIUM HYDROX 2400MG/30ML ORAL SUSPENSION 30 ML CUP PO PRN (19:14)
[2021-07-31] MEDS ORDERED: MENTHOL/PHENOL 1 EACH UD MM PRN (19:14)
[2021-07-31] MEDS ORDERED: P-EPHED 60MG/TRIPROLIDI 2.5MG TABLET PO PRN (19:14)
[2021-07-31] MEDS ORDERED: IBUPROFEN 400 MG TABLET (FP) PO PRN (19:14)
[2021-07-31] MEDS ORDERED: ALBUTEROL SO4 HFA INHALER IH PRN (19:16)
[2021-07-31] MEDS: hydrOXYzine PAMOATE 25 MG CAPSULE (FP) PO SCH (21:06)
[2021-07-31] MEDS: MELATONIN 5 MG TABLETS PO SCH (21:06)
[2021-07-31] MEDS: THIAMINE HCL 100 MG TABLET (FP) PO SCH (21:06)
[2021-07-31] MEDS: FLUTICASONE/SALMETEROL 100 MCG/50 MCG DISKUS IH SCH (22:29)
[2021-08-01] MEDS: hydrOXYzine PAMOATE 25 MG CAPSULE (FP) PO SCH ×5 (06:09→21:11)
[2021-08-01] MEDS: EMTRICITAB/RILPIVIRI/TENOF ALA (ODEFSEY) TABLET PO SCH (07:03)
[2021-08-01] MEDS: PRENATAL VITAMINS W/ FOLIC ACID TABLET (FP) PO SCH (09:51)
[2021-08-01] MEDS: FLUTICASONE/SALMETEROL 100 MCG/50 MCG DISKUS IH SCH ×2 (09:51→21:12)
[2021-08-01] MEDS: NICOTINE 7 MG/24 HOURS TOPICAL PATCH TD SCH (09:51)
[2021-08-01] MEDS: DOCUSATE SODIUM 100 MG CAPSULE (FP) PO SCH (09:51)
[2021-08-01] MEDS: ACYCLOVIR 800 MG TABLET PO SCH (09:52)
[2021-08-01] MEDS: THIAMINE HCL 100 MG TABLET (FP) PO SCH (21:11)
[2021-08-01] MEDS: MELATONIN 5 MG TABLETS PO SCH (21:11)
[2021-08-02] MEDS: hydrOXYzine PAMOATE 25 MG CAPSULE (FP) PO SCH ×5 (06:02→21:13)
[2021-08-02] MEDS: EMTRICITAB/RILPIVIRI/TENOF ALA (ODEFSEY) TABLET PO SCH (07:17)
[2021-08-02] MEDS: FLUTICASONE/SALMETEROL 100 MCG/50 MCG DISKUS IH SCH ×2 (10:02→21:14)
[2021-08-02] MEDS: PRENATAL VITAMINS W/ FOLIC ACID TABLET (FP) PO SCH (10:03)
[2021-08-02] MEDS: ACYCLOVIR 800 MG TABLET PO SCH (10:03)
[2021-08-02] MEDS: DOCUSATE SODIUM 100 MG CAPSULE (FP) PO SCH (10:03)
[2021-08-02] MEDS: NICOTINE 7 MG/24 HOURS TOPICAL PATCH TD SCH (10:03)
[2021-08-02] MEDS: THIAMINE HCL 100 MG TABLET (FP) PO SCH (21:13)
[2021-08-02] MEDS: MELATONIN 5 MG TABLETS PO SCH (21:13)
[2021-08-03] MEDS: hydrOXYzine PAMOATE 25 MG CAPSULE (FP) PO SCH (06:18)
[2021-08-03 06:39] VITALS: BP 109/77; PULSE 72; TEMP 97.7
[2021-08-03] MEDS: EMTRICITAB/RILPIVIRI/TENOF ALA (ODEFSEY) TABLET PO SCH (07:04)
== END 2021-08-03 08:47 | disposition left against medical advice (07) | DRG 770 ==
LOC: YASAS 18:46 → Y3W 18:50
PROVIDERS: ADMIT Allergy & Immunology; ATTEND Allergy & Immunology
PROC: HZ42ZZZ Group Counseling for Substance Abuse Treatment, Cognitive-Behavioral (ICD-10-PCS; principal; 2021-07-31)
DX: F11.20 Opioid dependence, uncomplicated (principal); F10.20 Alcohol dependence, uncomplicated; F14.20 Cocaine dependence, uncomplicated; B20 Human immunodeficiency virus [HIV] disease; J45.909 Unspecified asthma, uncomplicated
CPT/HCPCS: C9803; U0003; U0005

== ENCOUNTER 2022-02-10 10:27 | Inpatient (IN) | payer OTHER ==
[2022-02-10 12:46] VITALS: BMI 19.0
[2022-02-10] MEDS ORDERED: MAGNESIUM HYDROX 2400MG/30ML ORAL SUSPENSION 30 ML CUP PO PRN (14:46)
[2022-02-10] MEDS ORDERED: NALOXONE HCL (KLOXXADO) 8 MG SPRAY NS PRN (14:46)
[2022-02-10] MEDS ORDERED: NICOTINE 10 MG CARTRIDGE (INHALER) IH PRN (14:46)
[2022-02-10] MEDS ORDERED: MAGNESIUM CITRATE 300 ML BOTTLE PO PRN (14:46)
[2022-02-10] MEDS ORDERED: MAG HYDROX/AL HYDROX/SIMETH 30 ML UNIT-DOSE CUP PO PRN (14:46)
[2022-02-10] MEDS ORDERED: P-EPHED 60MG/TRIPROLIDI 2.5MG TABLET PO PRN (14:46)
[2022-02-10] MEDS ORDERED: LOPERAMIDE HCL 2 MG CAPSULE PO PRN (14:46)
[2022-02-10] MEDS ORDERED: guaiFENesin 200 MG/10 ML 10 ML UNIT-DOSE CUPS PO PRN (14:46)
[2022-02-10] MEDS ORDERED: IBUPROFEN 400 MG TABLET (FP) PO PRN (14:46)
[2022-02-10 18:24] LABS: HEMATOCRIT 37.6 % (32.4-45.2); HEMOGLOBIN 12.1 GM/dL (10.7-15.3); MCH 26.6 pg (25.7-33.7); MEAN CELL VOLUME 83.1 fl (80-96); PLATELET COUNT 72 10^3/uL (134-434); RBC 4.53 M/mm3 (3.60-5.2); RDW 15.9 % (11.6-15.6); WHITE BLOOD COUNT 2.1 K/mm3 (4.0-10.0)
[2022-02-10] MEDS: NICOTINE 21 MG/24 HOURS TOPICAL PATCH TD SCH (18:39)
[2022-02-10 18:46] LABS: BILIRUBIN,TOTAL 0.4 mg/dL (0.2-1); BLOOD UREA NITROGEN 25.2 mg/dL (7-18); CALCIUM 9.3 mg/dL (8.5-10.1); CREATININE 0.8 mg/dL (0.55-1.3); TOT PROT 9.7 g/dl (6.4-8.2)
[2022-02-10] MEDS: hydrOXYzine PAMOATE 25 MG CAPSULE (FP) PO SCH ×2 (18:47→22:00)
[2022-02-10] MEDS: MELATONIN 5 MG TABLETS PO SCH (22:00)
[2022-02-10] MEDS: THIAMINE HCL 100 MG TABLET (FP) PO SCH (22:00)
[2022-02-11] MEDS: hydrOXYzine PAMOATE 25 MG CAPSULE (FP) PO SCH ×3 (07:25→15:00)
[2022-02-11] MEDS: NICOTINE 7 MG/24 HOURS TOPICAL PATCH TD SCH (10:41)
[2022-02-11] MEDS: PRENATAL VITAMINS W/ FOLIC ACID TABLET (FP) PO SCH (10:42)
[2022-02-11] MEDS ORDERED: PNEUMOC 20-VAL CONJ-DIP CRM/PF 0.5 ML SYRINGE IM ONE (12:00)
[2022-02-11] MEDS ORDERED: FLUCONAZOLE 100 MG TABLET (UD) PO ONE (13:29)
[2022-02-11] MEDS: NICOTINE 21 MG/24 HOURS TOPICAL PATCH TD SCH (13:38)
[2022-02-11] MEDS: DOCUSATE SODIUM 100 MG CAPSULE (FP) PO SCH ×2 (14:59→21:45)
[2022-02-11] MEDS: CLOTRIMAZOLE 10 MG TROCHE PO SCH ×3 (15:00→21:49)
[2022-02-11] MEDS ORDERED: ALBUTEROL SO4 HFA INHALER IH PRN (15:00)
[2022-02-11 15:03] LABS: SYPHILIS W/ RPR CONF NON-REACTIVE (NONREACTIVE)
[2022-02-11] MEDS: ASPIRIN 81 MG CHEWABLE TABLETS PO SCH (17:02)
[2022-02-11] MEDS: BICTEGRAV/EMTRICIT/TENOFOV (BIKTARVY) 50-200-25 MG TABLET PO SCH (17:02)
[2022-02-11] MEDS: MELATONIN 5 MG TABLETS PO SCH (21:45)
[2022-02-11] MEDS: hydrOXYzine PAMOATE 25 MG CAPSULE (FP) PO PRN (21:45)
[2022-02-11] MEDS: THIAMINE HCL 100 MG TABLET (FP) PO SCH (21:45)
[2022-02-11] MEDS: BUDESONIDE/FORMETEROL FUMARATE 80/4.5 mcg INHALER IH SCH (21:48)
[2022-02-12 00:51] LABS: EPI CELLS >36 /uL (0-25.1); HYALINE CASTS 32 /uL (0-3.1); URINE APPEARANCE TURBID; URINE BACTERIA 817 /uL (0-1359); URINE BILIRUBIN NEGATIVE (NEGATIVE); URINE COLOR YELLOW; URINE GLUCOSE (UA) NEGATIVE (NEGATIVE); URINE KETONE TRACE (NEGATIVE); URINE LEUK ESTERASE 2+ (NEGATIVE); URINE NITRITE NEGATIVE (NEGATIVE); URINE PROTEIN 3+ (NEGATIVE); URINE RBC 20 /uL (0-23.9); URINE WBC 945 /uL (0-25.8)
[2022-02-12] MEDS: DOCUSATE SODIUM 100 MG CAPSULE (FP) PO SCH ×4 (06:47→21:37)
[2022-02-12] MEDS: CLOTRIMAZOLE 10 MG TROCHE PO SCH ×5 (06:48→21:41)
[2022-02-12 07:10] VITALS: RESP 18
[2022-02-12 07:17] LABS: URINE CRYSTALS MODERATE /hpf
[2022-02-12] MEDS: PRENATAL VITAMINS W/ FOLIC ACID TABLET (FP) PO SCH (10:22)
[2022-02-12] MEDS: BUDESONIDE/FORMETEROL FUMARATE 80/4.5 mcg INHALER IH SCH ×2 (10:22→21:39)
[2022-02-12] MEDS: BICTEGRAV/EMTRICIT/TENOFOV (BIKTARVY) 50-200-25 MG TABLET PO SCH (10:23)
[2022-02-12] MEDS: SULFAMETHOXAZOLE/TRIMETHOPRIM 800MG/160MG D.S. TABLET PO SCH (10:23)
[2022-02-12] MEDS: ASPIRIN 81 MG CHEWABLE TABLETS PO SCH (10:23)
[2022-02-12] MEDS: ACYCLOVIR 800 MG TABLET PO SCH (10:24)
[2022-02-12] MEDS: FLUCONAZOLE 100 MG TABLET (UD) PO SCH (10:24)
[2022-02-12] MEDS: NICOTINE 7 MG/24 HOURS TOPICAL PATCH TD SCH (10:25)
[2022-02-12] MEDS ORDERED: PNEUMOC 20-VAL CONJ-DIP CRM/PF 0.5 ML SYRINGE IM ONE (12:00)
[2022-02-12] MEDS: NICOTINE 21 MG/24 HOURS TOPICAL PATCH TD SCH (12:08)
[2022-02-12] MEDS ORDERED: risperiDONE 1 MG TABLET PO ONE (13:18)
[2022-02-12] MEDS: ACETAMINOPHEN 325 MG TABLET (FP) PO PRN (13:25)
[2022-02-12] MEDS: MELATONIN 5 MG TABLETS PO SCH (21:38)
[2022-02-12] MEDS: THIAMINE HCL 100 MG TABLET (FP) PO SCH (21:38)
[2022-02-12] MEDS: hydrOXYzine PAMOATE 25 MG CAPSULE (FP) PO PRN (21:38)
[2022-02-12] MEDS: risperiDONE 1 MG TABLET PO SCH (21:38)
[2022-02-13] MEDS: DOCUSATE SODIUM 100 MG CAPSULE (FP) PO SCH ×4 (06:24→21:30)
[2022-02-13] MEDS: CLOTRIMAZOLE 10 MG TROCHE PO SCH ×5 (06:25→22:20)
[2022-02-13 09:26] LABS: BASO % 0.8 % (0-2.0); EOS % 1.2 % (0-4.5); HEMATOCRIT 36.4 % (32.4-45.2); HEMOGLOBIN 11.9 GM/dL (10.7-15.3); LYMPH % 46.7 % (8-40); MCH 26.9 pg (25.7-33.7); MCHC 32.7 g/dl (32.0-36.0); MEAN CELL VOLUME 82.2 fl (80-96); MEAN PLT VOLUME 11.1 fl (7.5-11.1); MONO % 14.9 % (3.8-10.2); NEUT % 36.4 % (42.8-82.8); PLATELET COUNT 79 10^3/uL (134-434); RBC 4.43 M/mm3 (3.60-5.2); WHITE BLOOD COUNT 2.4 K/mm3 (4.0-10.0)
[2022-02-13 09:53] LABS: BLOOD UREA NITROGEN 23.6 mg/dL (7-18)
[2022-02-13 09:58] LABS: CREATININE 0.7 mg/dL (0.55-1.3)
[2022-02-13 09:59] LABS: BILIRUBIN,TOTAL 0.1 mg/dL (0.2-1); TOT PROT 8.3 g/dl (6.4-8.2)
[2022-02-13] MEDS: PRENATAL VITAMINS W/ FOLIC ACID TABLET (FP) PO SCH (10:02)
[2022-02-13] MEDS: risperiDONE 1 MG TABLET PO SCH ×2 (10:02→21:28)
[2022-02-13] MEDS: ASPIRIN 81 MG CHEWABLE TABLETS PO SCH (10:02)
[2022-02-13] MEDS: SULFAMETHOXAZOLE/TRIMETHOPRIM 800MG/160MG D.S. TABLET PO SCH (10:02)
[2022-02-13] MEDS: BICTEGRAV/EMTRICIT/TENOFOV (BIKTARVY) 50-200-25 MG TABLET PO SCH (10:02)
[2022-02-13] MEDS: NICOTINE 21 MG/24 HOURS TOPICAL PATCH TD SCH (10:03)
[2022-02-13 10:10] LABS: ALBUMIN 2.4 g/dl (3.4-5.0)
[2022-02-13 10:25] LABS: ANISOCYTOSIS 2+; MACROCYTOSIS 2+
[2022-02-13] MEDS: FLUCONAZOLE 100 MG TABLET (UD) PO SCH (10:46)
[2022-02-13] MEDS: NICOTINE 7 MG/24 HOURS TOPICAL PATCH TD SCH (10:46)
[2022-02-13] MEDS: ACYCLOVIR 800 MG TABLET PO SCH (10:47)
[2022-02-13] MEDS: BUDESONIDE/FORMETEROL FUMARATE 80/4.5 mcg INHALER IH SCH ×2 (10:47→21:27)
[2022-02-13] MEDS: ACETAMINOPHEN 325 MG TABLET (FP) PO PRN (19:59)
[2022-02-13] MEDS: THIAMINE HCL 100 MG TABLET (FP) PO SCH (21:28)
[2022-02-13] MEDS: MELATONIN 5 MG TABLETS PO SCH (21:29)
[2022-02-14] MEDS: DOCUSATE SODIUM 100 MG CAPSULE (FP) PO SCH (06:26)
[2022-02-14] MEDS: CLOTRIMAZOLE 10 MG TROCHE PO SCH (06:27)
[2022-02-14 07:38] VITALS: BP 91/60; PULSE 78; TEMP 97.8
== END 2022-02-14 07:18 | disposition left against medical advice (07) | DRG 770 ==
LOC: YASAS 10:27 → Y5N 15:04
PROVIDERS: ADMIT Allergy & Immunology; ATTEND Psychiatry & Neurology Pain Medicine
PROC: HZ42ZZZ Group Counseling for Substance Abuse Treatment, Cognitive-Behavioral (ICD-10-PCS; principal; 2022-02-10)
DX: F10.20 Alcohol dependence, uncomplicated (principal); F14.20 Cocaine dependence, uncomplicated; F11.10 Opioid abuse, uncomplicated; F17.210 Nicotine dependence, cigarettes, uncomplicated; F31.9 Bipolar disorder, unspecified; F20.0 Paranoid schizophrenia; F19.24 Other psychoactive substance dependence with psychoactive substance-induced mood disorder; J45.20 Mild intermittent asthma, uncomplicated; R63.4 Abnormal weight loss; B20 Human immunodeficiency virus [HIV] disease; B37.0 Candidal stomatitis; Z86.19 Personal history of other infectious and parasitic diseases; Z91.51 Personal history of suicidal behavior; Z56.0 Unemployment, unspecified; Z59.02 Unsheltered homelessness
CPT/HCPCS: 36415; 80053; 81003; 85025; 85027; 86780; 86803; 87086; 87811; C9803-CS; J2794; U0003; U0005

== ENCOUNTER 2022-04-06 13:48 | Inpatient (IN) | payer OTHER ==
[2022-04-06 15:42] VITALS: BMI 15.9
[2022-04-06] MEDS ORDERED: ACETAMINOPHEN 325 MG TABLET (FP) PO PRN ×2 (18:24)
[2022-04-06] MEDS ORDERED: NICOTINE 10 MG CARTRIDGE (INHALER) IH PRN (18:24)
[2022-04-06] MEDS ORDERED: MAGNESIUM CITRATE 300 ML BOTTLE PO PRN (18:24)
[2022-04-06] MEDS ORDERED: ONDANSETRON *ODT* 4 MG TABLET SL PRN (18:24)
[2022-04-06] MEDS ORDERED: IBUPROFEN 400 MG TABLET (FP) PO PRN (18:24)
[2022-04-06] MEDS ORDERED: LOPERAMIDE HCL 2 MG CAPSULE PO PRN (18:24)
[2022-04-06] MEDS ORDERED: MAGNESIUM HYDROX 2400MG/30ML ORAL SUSPENSION 30 ML CUP PO PRN (18:24)
[2022-04-06] MEDS ORDERED: BISMUTH SUBSALICYLATE 524 MG/30 ML PO PRN (18:24)
[2022-04-06] MEDS ORDERED: METHOCARBAMOL 500 MG TABLET PO PRN (18:24)
[2022-04-06] MEDS ORDERED: IBUPROFEN 600 MG TABLET (FP) PO PRN (18:24)
[2022-04-06] MEDS ORDERED: NALOXONE HCL (KLOXXADO) 8 MG SPRAY NS PRN (18:24)
[2022-04-06] MEDS ORDERED: BENZOCAINE/MENTHOL (CHLORASEPTIC ) LOZENGE MM PRN (18:24)
[2022-04-06] MEDS ORDERED: MAG HYDROX/AL HYDROX/SIMETH 30 ML UNIT-DOSE CUP PO PRN (18:24)
[2022-04-06] MEDS ORDERED: DICYCLOMINE HCL 10 MG CAPSULE PO PRN (18:24)
[2022-04-06] MEDS ORDERED: ALBUTEROL SO4 HFA INHALER IH PRN (18:30)
[2022-04-06] MEDS: THIAMINE HCL 100 MG TABLET (FP) PO SCH (22:45)
[2022-04-06] MEDS: BUDESONIDE/FORMETEROL FUMARATE 80/4.5 mcg INHALER IH SCH (22:45)
[2022-04-06] MEDS: hydrOXYzine PAMOATE 25 MG CAPSULE (FP) PO SCH (22:45)
[2022-04-06] MEDS: MELATONIN 5 MG TABLETS PO SCH (22:45)
[2022-04-07] MEDS: hydrOXYzine PAMOATE 25 MG CAPSULE (FP) PO SCH ×5 (06:57→23:04)
[2022-04-07] MEDS ORDERED: BICTEGRAV/EMTRICIT/TENOFOV (BIKTARVY) 50-200-25 MG TABLET PO SCH (10:00)
[2022-04-07] MEDS ORDERED: MULTIVITAMINS (DAILY MVI) TABLET (FP) PO SCH (10:00)
[2022-04-07] MEDS ORDERED: SULFAMETHOXAZOLE/TRIMETHOPRIM 800MG/160MG D.S. TABLET PO SCH (10:00)
[2022-04-07] MEDS ORDERED: FLUCONAZOLE 100 MG TABLET (UD) PO SCH (10:00)
[2022-04-07] MEDS ORDERED: PRENATAL VITAMINS W/ FOLIC ACID TABLET (FP) PO SCH (10:00)
[2022-04-07] MEDS: BUDESONIDE/FORMETEROL FUMARATE 80/4.5 mcg INHALER IH SCH ×2 (10:31→23:04)
[2022-04-07 12:50] LABS: HEMATOCRIT 37.3 % (32.4-45.2); HEMOGLOBIN 12.2 GM/dL (10.7-15.3); MCH 26.6 pg (25.7-33.7); MCHC 32.8 g/dl (32.0-36.0); MEAN CELL VOLUME 81.3 fl (80-96); MEAN PLT VOLUME 9.7 fl (7.5-11.1); PLATELET COUNT 130 10^3/uL (134-434); RBC 4.59 M/mm3 (3.60-5.2); RDW 15.9 % (11.6-15.6); WHITE BLOOD COUNT 3.1 K/mm3 (4.0-10.0)
[2022-04-07 13:01] LABS: CREATININE 0.8 mg/dL (0.55-1.3)
[2022-04-07 13:02] LABS: ALBUMIN 2.4 g/dl (3.4-5.0); CALCIUM 9.6 mg/dL (8.5-10.1); TOT PROT 9.4 g/dl (6.4-8.2)
[2022-04-07 13:03] LABS: BILIRUBIN,TOTAL 0.2 mg/dL (0.2-1); BLOOD UREA NITROGEN 19.6 mg/dL (7-18)
[2022-04-07] MEDS ORDERED: NYSTATIN 500,000 UNITS/5 ML SUSPENSION PO SCH (18:00)
[2022-04-07] MEDS: MELATONIN 5 MG TABLETS PO SCH (23:04)
[2022-04-07] MEDS: THIAMINE HCL 100 MG TABLET (FP) PO SCH (23:04)
[2022-04-08] MEDS: hydrOXYzine PAMOATE 25 MG CAPSULE (FP) PO SCH (07:18)
[2022-04-08 08:44] VITALS: BP 118/76; PULSE 64; RESP 18; TEMP 98.3
== END 2022-04-08 09:16 | disposition home or self-care (01) | DRG 773 ==
LOC: YASAS 13:48 → Y3N 18:52
PROVIDERS: ADMIT Allergy & Immunology; ATTEND Surgery
PROC: HZ2ZZZZ Detoxification Services for Substance Abuse Treatment (ICD-10-PCS; principal; 2022-04-06)
DX: F11.23 Opioid dependence with withdrawal (principal); F10.230 Alcohol dependence with withdrawal, uncomplicated; F14.20 Cocaine dependence, uncomplicated; F17.210 Nicotine dependence, cigarettes, uncomplicated; Z21 Asymptomatic human immunodeficiency virus [HIV] infection status; B37.0 Candidal stomatitis; J45.20 Mild intermittent asthma, uncomplicated
CPT/HCPCS: 36415; 80053; 85027; 86780; C9803-CS; U0003; U0005

== ENCOUNTER 2022-07-20 11:36 | Inpatient (IN) | payer OTHER ==
[2022-07-20 12:37] VITALS: BMI 17.6
[2022-07-20] MEDS ORDERED: DICYCLOMINE HCL 10 MG CAPSULE PO PRN (14:07)
[2022-07-20] MEDS ORDERED: BENZOCAINE/MENTHOL (CHLORASEPTIC ) LOZENGE MM PRN (14:07)
[2022-07-20] MEDS ORDERED: NALOXONE HCL (KLOXXADO) 8 MG SPRAY NS PRN (14:07)
[2022-07-20] MEDS ORDERED: ACETAMINOPHEN 325 MG TABLET (FP) PO PRN ×2 (14:07)
[2022-07-20] MEDS ORDERED: NICOTINE 10 MG CARTRIDGE (INHALER) IH PRN (14:07)
[2022-07-20] MEDS ORDERED: POLYETHYLENE GLYCOL (HEALTHYLAX) 3350 17 GM PACKET PO PRN (14:07)
[2022-07-20] MEDS ORDERED: IBUPROFEN 400 MG TABLET (FP) PO PRN (14:07)
[2022-07-20] MEDS ORDERED: LOPERAMIDE HCL 2 MG CAPSULE PO PRN (14:07)
[2022-07-20] MEDS ORDERED: IBUPROFEN 600 MG TABLET (FP) PO PRN (14:07)
[2022-07-20] MEDS ORDERED: METHOCARBAMOL 500 MG TABLET PO PRN (14:07)
[2022-07-20] MEDS ORDERED: ONDANSETRON *ODT* 4 MG TABLET SL PRN (14:07)
[2022-07-20] MEDS ORDERED: MAGNESIUM HYDROX 2400MG/30ML ORAL SUSPENSION 30 ML CUP PO PRN (14:07)
[2022-07-20] MEDS ORDERED: hydrOXYzine PAMOATE 25 MG CAPSULE (FP) PO PRN (14:07)
[2022-07-20] MEDS ORDERED: MAG HYDROX/AL HYDROX/SIMETH 30 ML UNIT-DOSE CUP PO PRN (14:07)
[2022-07-20] MEDS ORDERED: BISMUTH SUBSALICYLATE 262 MG/15 ML BTL PO PRN (14:07)
[2022-07-20] MEDS ORDERED: ALBUTEROL SO4 HFA INHALER IH PRN (14:12)
[2022-07-20] MEDS: MAG HYDROX/ALH/SMC/DPHA/LIDO 240 ML MOUTHWASH MM SCH ×2 (20:43→23:48)
[2022-07-20] MEDS ORDERED: MELATONIN 5 MG TABLETS PO SCH (22:00)
[2022-07-20] MEDS ORDERED: THIAMINE HCL 100 MG TABLET (FP) PO SCH (22:00)
[2022-07-20] MEDS: BUDESONIDE/FORMETEROL FUMARATE 80/4.5 mcg INHALER IH SCH (22:07)
[2022-07-21] MEDS: MAG HYDROX/ALH/SMC/DPHA/LIDO 240 ML MOUTHWASH MM SCH ×2 (06:27→12:38)
[2022-07-21] MEDS ORDERED: SENNOSIDES 8.6MG TABLET (FP) PO PRN (08:50)
[2022-07-21 09:06] VITALS: RESP 18
[2022-07-21] MEDS: BUDESONIDE/FORMETEROL FUMARATE 80/4.5 mcg INHALER IH SCH (09:59)
[2022-07-21] MEDS ORDERED: DOCUSATE SODIUM 100 MG CAPSULE (FP) PO SCH (10:00)
[2022-07-21] MEDS ORDERED: SULFAMETHOXAZOLE/TRIMETHOPRIM 800MG/160MG D.S. TABLET PO SCH (10:00)
[2022-07-21] MEDS ORDERED: PRENATAL VITAMINS W/ FOLIC ACID TABLET (FP) PO SCH (10:00)
[2022-07-21] MEDS ORDERED: NICOTINE 14 MG/24 HOURS TOPICAL PATCH TD SCH (10:00)
[2022-07-21 11:53] LABS: HEMATOCRIT 35.6 % (32.4-45.2); HEMOGLOBIN 11.4 GM/dL (10.7-15.3); MCH 27.7 pg (25.7-33.7); MCHC 31.9 g/dl (32.0-36.0); MEAN CELL VOLUME 86.9 fl (80-96); MEAN PLT VOLUME 9.9 fl (7.5-11.1); PLATELET COUNT 103 10^3/uL (134-434); RDW 17.3 % (11.6-15.6); WHITE BLOOD COUNT 2.8 K/mm3 (4.0-10.0)
[2022-07-21 12:13] LABS: CALCIUM 9.4 mg/dL (8.5-10.1)
[2022-07-21 12:14] LABS: ALBUMIN 2.2 g/dl (3.4-5.0)
[2022-07-21 12:17] LABS: CREATININE 0.9 mg/dL (0.55-1.3)
[2022-07-21 12:19] LABS: BILIRUBIN,TOTAL 0.2 mg/dL (0.2-1); TOT PROT 8.8 g/dl (6.4-8.2)
[2022-07-21 12:40] VITALS: BP 130/89; PULSE 84; TEMP 96.7
== END 2022-07-21 14:46 | disposition other institution (70) | DRG 773 ==
LOC: YASAS 11:36 → Y3N 14:16
PROVIDERS: ADMIT Allergy & Immunology; ATTEND Surgery
PROC: HZ2ZZZZ Detoxification Services for Substance Abuse Treatment (ICD-10-PCS; principal; 2022-07-20)
DX: F11.20 Opioid dependence, uncomplicated (principal); F14.20 Cocaine dependence, uncomplicated; F17.210 Nicotine dependence, cigarettes, uncomplicated; Z21 Asymptomatic human immunodeficiency virus [HIV] infection status; J45.909 Unspecified asthma, uncomplicated; K00.0 Anodontia; R63.4 Abnormal weight loss; Z68.1 Body mass index [BMI] 19.9 or less, adult
CPT/HCPCS: 36415; 80053; 81025; 85027; 86780; 87811; C9803-CS; U0003; U0005